=== PATIENT | female | born 1970 | race Caucasian/White ===

== ENCOUNTER 2017-01-17 20:30 | Emergency (ER) | payer OTHER ==
--- NOTE | 2017-01-17 21:39 | ERPHSYRPT ---
- History of Present Illness Time Seen by Provider: 01/17/17 21:19 Source: patient Patient Subjective Stated Complaint: pt had arthroscopic surgery on her right knee 01/[address] katz and since then she has been having pain in her right thigh,knee and calf -she can't sleep due the pain and she has numbness in her fingers and toes at times -she notes excessive swelling of both lower extremeties and the 2nd toe on the right foot is bruised no pain Triage Nursing Assessment: pt is awake and alert and able to answer questions - she is ambualtory with a knee brace and compressions stocking in place -she has pos pedal pulses bilat with the left stronger than the right both feet ar pink and warm with good sensation Physician History: The patient is a 46-year-old morbidly obese female with her status post right knee surgery one week ago complaining of bilateral lower leg swelling that has now begun to improve, severe right leg and knee pain which she has been treating with [place] 10 mg 2 tablets as needed, and tingling in her fingertips. She called her surgeon today and was told to come to the emergency room. She had the surgery done in [place]. The patient began walking on her rights leg the day after surgery but was instructed to no weight bearing. Her past medical history is significant for MRSA, hypertension, depression, glaucoma, psoriatic arthritis, rheumatoid arthritis. Method of Injury: other (knee surgery) Occurred: last week Quality: constant, aching Severity of Pain-Max: severe Severity of Pain-Current: severe Lower Extremities Pain: leg: right, knee: right Modifying Factors: Improves With: pain medication Associated Symptoms: other (swelling) Allergies/Adverse Reactions: bacitracin [From Neosporin ([id number])] Allergy (Verified 01/17/17 21:23) neomycin sulfate [From Neosporin ([id number])] Allergy (Verified 01/17/17 21: 23) Home Medications: Oxycodone HCl/Acetaminophen [Percocet 5-325 mg Tablet] 7.5 mg PO Q6HPRN PRN [History] Dorzolamide HCl/Timolol Maleat [Dorzolamide-Timolol Eye Drops] 10 ml OP DAILY [History] Lisinopril 10 mg [Zestril 10 MG] 10 mg PO DAILY 03/07/16 [History] Travorpost Ophth [Travatan 0.004% Opth Emily] 2.5 ml OP BID 03/07/16 [ History] Gabapentin [Neurontin] 1 - 2 tab PO TID 04/12/16 [History] Hx Tetanus, Diphtheria Vaccination/Date Given: No Hx Influenza Vaccination/Date Given: No Hx Pneumococcal Vaccination/Date Given: No - Review of Systems Constitutional: No Fever, No Chills Eyes: No Symptoms Ears, Nose, & Throat: No Symptoms Respiratory: No Cough, No Dyspnea Cardiac: No Chest Pain, No Edema, No Syncope Abdominal/Gastrointestinal: No Abdominal Pain, No Nausea, No Vomiting, No Diarrhea Genitourinary Symptoms: No Dysuria Musculoskeletal: Joint Pain, Joint Swelling Skin: No Rash Neurological: Sensory Changes Psychological: No Symptoms Endocrine: No Symptoms Hematologic/Lymphatic: No Symptoms Immunological/Allergic: No Symptoms All Other Systems: Reviewed and Negative - Past Medical History Pertinent Past Medical History: Yes ENT History: Glaucoma Cardiac History: Hypertension Other Medical History: scoriatic arthritis - Past Surgical History Past Surgical History: Yes Female Surgical History: Hysterectomy - Social History Smoking Status: Current every day smoker How long have you smoked: 20 Exposure to second hand smoke: No Drug Use: none Patient Lives Alone: No - Female History Hx Last Menstrual Period: hyst - Nursing Vital Signs Nursing Vital Signs: Initial Vital Signs Temperature 98.6 F 01/17/17 21:02 Pulse Rate 88 01/17/17 21:02 Respiratory Rate 16 01/17/17 21:02 Blood Pressure 138/93 01/17/17 21:02 O2 Sat by Pulse Oximetry 99 01/17/17 21:02 Pain Scale Pain Intensity 10 - Physical Exam General Appearance: alert Eyes, Ears, Nose, Throat Exam: moist mucous membranes Neck Exam: non-tender, supple Cardiovascular/Respiratory Exam: chest non-tender, normal breath sounds, regular rate/rhythm, no respiratory distress Gastrointestinal/Abdominal Exam: non-tender, guarding Back Exam: normal inspection, No vertebral tenderness Hips Exam: bilateral: non-tender, normal inspection Legs Exam: right leg: swelling, left leg: non-tender Knees Exam: right knee: soft tissue tenderness, swelling, other (healing surgical wounds.) Ankle Exam: right ankle: swelling Foot Exam: right foot: swelling Neuro/Tendon Exam: normal sensation, normal motor functions Mental Status Exam: alert, oriented x 3, cooperative Skin Exam: normal color, warm, dry SpO2 Interpretation: normal SpO2: 99 Oxygen Delivery: Room Air Ordered Tests: Active Orders 24 hr Category Date Time Status Clean Catch Urine Specimen STAT Care 01/17/17 21:53 Active IV Insertion STAT Care 01/17/17 21:49 Active BLOOD CULTURE Stat Lab 01/17/17 22:05 Received CBC W DIFF Stat Lab 01/17/17 21:52 Completed CMP Stat Lab 01/17/17 21:52 Completed CULTURE,URINE Stat Lab 01/17/17 21:45 Received D-DIMER QUANTITATION Stat Lab 01/17/17 21:52 Completed Lactic Acid Stat Lab 01/17/17 22:10 Completed Manual Differential NC Stat Lab 01/17/17 21:52 Completed NT PRO BNP Stat Lab 01/17/17 21:52 Completed UA W/ MICROSCOPIC Stat Lab 01/17/17 21:45 Completed Medication Summary Discontinued Medications Generic Name Dose Route Start Last Admin Trade Name Sesarq PRN Reason Stop Dose Admin Furosemide 40 mg 01/17/17 21:49 01/17/17 22:00 Lasix 40 Mg/4 Ml IV 01/17/17 21:50 40 mg STAT ONE Administration Furosemide Confirm 01/17/17 21:59 Lasix 40 Mg/4 Ml Administered 01/17/17 22:00 Dose 40 mg .ROUTE .STK-MED ONE Ketorolac Tromethamine 30 mg 01/17/17 21:50 01/17/17 22:01 Toradol 30 Mg Injection IV 01/17/17 21:51 30 mg STAT ONE Administration Ketorolac Tromethamine Confirm 01/17/17 21:59 Toradol 30 Mg Injection Administered 01/17/17 22:00 Dose 30 mg .ROUTE .STK-MED ONE Lab/Rad Data: Laboratory Result Diagrams 01/17/17 21:52 01/17/17 21:52 Laboratory Results 01/17/17 01/17/17 01/17/17 Range/Units 22:10 21:52 21:52 WBC (4.0-10.5) K/mm3 RBC (4.1-5.4) M/mm3 Hgb (12.0-16.0) gm/dl Hct (35-47) % MCV (78-100) fl MCH (26-32) pg MCHC (32-36) g/dl RDW (11.5-14.0) % Plt Count (150-450) K/mm3 MPV (6-9.5) fl D-Dimer 1429 H* (0-500) ng/mL Sodium 145 (136-145) mEq/L Potassium 4.0 (3.5-5.1) mEq/L Chloride 108 H (98-107) mEq/L Carbon Dioxide 28.8 (21-32) mEq/L Anion Gap 12.0 (5-15) MEQ/L BUN 9 (9-20) mg/dL Creatinine 0.62 (0.55-1.30) mg/dl Estimated GFR > 60 ML/MIN Glucose 118 H (70-110) MG/DL Lactic Acid 1.2 (0.4-2.0) Calcium 9.0 (8.5-10.1) mg/dL Total Bilirubin 0.20 (0.2-1.0) mg/dL AST 25 (15-37) U/L ALT 38 (12-78) U/L Alkaline Phosphatase 110 (46-116) U/L NT-Pro-B Natriuret Pep 164 H (0-125) pg/ml Serum Total Protein 7.4 (6.4-8.2) gm/dL Albumin 3.0 L (3.4-5.0) g/dL Ur Collection Type Urine Color (YELLOW) Urine Appearance (CLEAR) Urine pH (5-6) Ur Specific [place] (1.005-1.025) Urine Protein (Negative) Urine Ketones (NEGATIVE) Urine Blood (0-5) Syed/ul Urine Nitrite (NEGATIVE) Urine Bilirubin (NEGATIVE) Urine Urobilinogen (0-1) mg/dL Ur Leukocyte Esterase (NEGATIVE) Urine Microscopic RBC (0-2) /HPF Urine Microscopic WBC (0-5) /HPF Ur Epithelial Cells (FEW) /HPF Amorphous Crystals (NEGATIVE) /HPF Urine Bacteria (NEGATIVE) /HPF Urine Glucose (NEGATIVE) mg/dL Specimen Received 01/17/17 01/17/17 Range/Units 21:52 21:45 WBC 9.3 (4.0-10.5) K/mm3 RBC 4.85 (4.1-5.4) M/mm3 Hgb 13.3 (12.0-16.0) gm/dl Hct 41.7 (35-47) % MCV 86.0 (78-100) fl MCH 27.4 (26-32) pg MCHC 31.9 L (32-36) g/dl RDW 14.7 H (11.5-14.0) % Plt Count 379 (150-450) K/mm3 MPV 8.5 (6-9.5) fl D-Dimer (0-500) ng/mL Sodium (136-145) mEq/L Potassium (3.5-5.1) mEq/L Chloride (98-107) mEq/L Carbon Dioxide (21-32) mEq/L Anion Gap (5-15) MEQ/L BUN (9-20) mg/dL Creatinine (0.55-1.30) mg/dl Estimated GFR ML/MIN Glucose (70-110) MG/DL Lactic Acid (0.4-2.0) Calcium (8.5-10.1) mg/dL Total Bilirubin (0.2-1.0) mg/dL AST (15-37) U/L ALT (12-78) U/L Alkaline Phosphatase (46-116) U/L NT-Pro-B Natriuret Pep (0-125) pg/ml Serum Total Protein (6.4-8.2) gm/dL Albumin (3.4-5.0) g/dL Ur Collection Type CLEAN CATCH Urine Color YELLOW (YELLOW) Urine Appearance SLIGHTLY CLOUDY (CLEAR) Urine pH 7.0 (5-6) Ur Specific [place] 1.015 (1.005-1.025) Urine Protein NEGATIVE (Negative) Urine Ketones NEGATIVE (NEGATIVE) Urine Blood NEGATIVE (0-5) Syed/ul Urine Nitrite NEGATIVE (NEGATIVE) Urine Bilirubin NEGATIVE (NEGATIVE) Urine Urobilinogen NORMAL (0-1) mg/dL Ur Leukocyte Esterase 1+ (NEGATIVE) Urine Microscopic RBC 0-2 (0-2) /HPF Urine Microscopic WBC 5-10 (0-5) /HPF Ur Epithelial Cells FEW (FEW) /HPF Amorphous Crystals FEW (NEGATIVE) /HPF Urine Bacteria MODERATE (NEGATIVE) /HPF Urine Glucose NEGATIVE (NEGATIVE) mg/dL Specimen Received 01/17/17 2215 - Progress Progress: improved Counseled pt/family regarding: lab results, diagnosis, need for follow-up - Departure Time of Disposition: 23:55 Departure Disposition: Home Clinical Impression: Edema, Elevated d-dimer, UTI (urinary tract infection) Condition: Stable Critical Care Time: No Referrals: CORWIN PEÑA FNP [Primary Care Provider] - Additional Instructions: Tonight in the ER you were experiencing right leg pain, swelling of both legs, and a UTI. You were given Toradol 30 mg and Lasix 40 mg by IV and Lovenox 114 units subcutaneously. Your d-dimer was elevated which possibly indicates a DVT. The Lovenox is a prophylactic injection for the possible DVT. Tomorrow your scheduled for a venous ultrasound in your lower extremities to look for a blood clot. After your ultrasound tomorrow, follow-up with your private family doctor for the results and possible further therapy. For the UTI take cephalexin 500 mg 4 times a day for 7 days. Prescriptions: Cephalexin 500 mg PO QID #28 tablet
[2017-01-17] MEDS ORDERED: Lasix 40 MG/4 ML IV ONE (21:49)
[2017-01-17] MEDS ORDERED: TORAdol 30 mg Injection IV ONE (21:50)
[2017-01-17] MEDS ORDERED: TORAdol 30 mg Injection ONE (21:59)
[2017-01-17] MEDS ORDERED: Lasix 40 MG/4 ML ONE (21:59)
[2017-01-17 22:01] LABS: Mean Corpuscular Hemoglobin 27.4 pg (26-32); Mean Platelet Volume 8.5 fl (6-9.5); Platelet Count 379 K/mm3 (150-450); Red Blood Count 4.85 M/mm3 (4.1-5.4); Red Cell Distribution Width 14.7 % (11.5-14.0); White Blood Count 9.3 K/mm3 (4.0-10.5)
[2017-01-17 22:41] LABS: Collection Type CLEAN CATCH; Glucose NEGATIVE (NEGATIVE); Leukocyte Esterase 1+ (NEGATIVE)
[2017-01-17 22:42] LABS: Bilirubin NEGATIVE (NEGATIVE); Blood NEGATIVE Ery/ul (0-5); COMPLETE URINE MICROSCOPIC? YES
[2017-01-17 22:44] LABS: Bacteria MODERATE /HPF (NEGATIVE); Epithelial Cells FEW /HPF (FEW)
[2017-01-17 22:45] LABS: ADD URINE CULTURE? YES (NO)
[2017-01-17 22:47] LABS: ALKALINE PHOSPHATASE 110 U/L (46-116); BLOOD UREA NITROGEN 9 mg/dL (9-20); CHLORIDE 108 mEq/L (98-107); Carbon Dioxide 28.8 mEq/L (21-32); Glucose 118 MG/DL (70-110); SGOT/AST 25 U/L (15-37); SGPT/ALT 38 U/L (12-78); SODIUM 145 mEq/L (136-145); Total Protein 7.4 gm/dL (6.4-8.2)
[2017-01-17] MEDS ORDERED: ENOXAPARIN SODIUM SQ STA (23:48)
[2017-01-17] MEDS ORDERED: ENOXAPARIN SODIUM SQ ONE (23:55)
[2017-01-18 00:11] LABS: ATYPICAL LYMPHS 4 %; Eosinophil 9 % (0.00-3.0); Platelet Estimate NORMAL (NORMAL); Total Cells Counted 100
[2017-01-18 00:24] VITALS: BP 140/86; PULSE 80; O2SAT 98
== END 2017-01-18 00:24 | disposition home or self-care (01) ==
LOC: ED 20:30
DX: R60.9 Edema, unspecified (principal); R79.1 Abnormal coagulation profile; N39.0 Urinary tract infection, site not specified; Z98.890 Other specified postprocedural states; I10 Essential (primary) hypertension
CPT/HCPCS: 36000; 36415; 80053; 81000; 83605; 83880; 85025; 85379; 87040; 87086; 96372; 96374; 96375; 99284; J1650; J1885; J1940

== ENCOUNTER 2018-11-08 09:54 | Emergency (ER) | payer OTHER ==
[2018-11-08] MEDS ORDERED: NITRO-BID 2% UD PACKETS TOP ONE (10:15)
[2018-11-08] MEDS ORDERED: BABY ASPIRIN 81 MG CHEW PO ONE (10:15)
[2018-11-08] MEDS ORDERED: Sodium Chloride 0.9% 1000 ML 1,000 ML IV SCH (10:15)
[2018-11-08] MEDS ORDERED: Nitrostat 0.4 MG (ED) SL ONE ×2 (10:15→10:35)
--- NOTE | 2018-11-08 10:22 | ERPHSYRPT ---
- History of Present Illness Time Seen by Provider: 11/08/18 10:15 Historian: patient Exam Limitations: clinical condition Patient Subjective Stated Complaint: was scheduled for a total knee replacement on 11/05. states went in to cardiac arrest and had to shock her.. was released from the hospitwal the next day. states hurts all over. chest pain mid into back. does not go into arms or no N/V. unsure what happened. Triage Nursing Assessment: alert and awake in no distress. see above.. pain mid chest that goes into back. sl SOB with exertion.. able to ambulate with a limp due to knee. states they were unable to complete the surgical procedure. no previous hx of cardiac problems. Physician History: PATIENT WITH A HISTORY OF HYPERTENSION, CHRONIC PAIN SYNDROME, UNDERWENT ATTEMPTED RIGHT KNEE SURGERY 3 DAYS AGO BUT SURGERY CANCELLED DUE TO ALLERGIC REACTION UNDER ANESTHESIA. PATIENT COMPLAINS OF SUBSTERNAL CHEST TIGHTNESS PERSISTENT FOR 2 DAYS, RADIATES TO BACK. PAIN SCALE 4/10. DENIES ASSOCIATED DYSPNEA, DIAPHORESIS, PALPITATIONS, RADIATION OF PAIN TO NECK, JAW OR ARMS. Activities at Onset: none Quality: tightness Location: substernal Chest Pain Radiation: back Severity of Pain-Max: moderate Modifying Factors: Improves With: nothing Associated Symptoms: denies symptoms Nitro Today/Relief: no nitro taken today Aspirin Treatment Today: 81 mg x 4, provided by ED Allergies/Adverse Reactions: bacitracin [From Neosporin ([id number])] Allergy (Verified 11/08/18 10:46) neomycin sulfate [From Neosporin ([id number])] Allergy (Verified 11/08/18 10: 46) Home Medications: Oxycodone HCl/Acetaminophen [Percocet 5-325 mg Tablet] 7.5 mg PO Q6HPRN PRN [History] Dorzolamide HCl/Timolol Maleat [Dorzolamide-Timolol Eye Drops] 10 ml OP DAILY [History] Lisinopril 10 mg [Zestril 10 MG] 10 mg PO DAILY 03/07/16 [History] Travorpost Ophth [Travatan 0.004% Opth Emily] 2.5 ml OP BID 03/07/16 [ History] Gabapentin [Neurontin] 1 - 2 tab PO TID 04/12/16 [History] Hx Tetanus, Diphtheria Vaccination/Date Given: No Hx Influenza Vaccination/Date Given: No Hx Pneumococcal Vaccination/Date Given: No - Review of Systems Constitutional: No Fever, No Chills Eyes: No Symptoms Ears, Nose, & Throat: No Symptoms Respiratory: No Cough, No Dyspnea Cardiac: Chest Pain, No Edema, No Syncope Abdominal/Gastrointestinal: No Symptoms, No Abdominal Pain, No Nausea, No Vomiting, No Diarrhea Genitourinary Symptoms: No Symptoms, No Dysuria Musculoskeletal: No Symptoms, No Back Pain, No Neck Pain Skin: No Rash Neurological: No Dizziness, No Focal Weakness, No Sensory Changes Psychological: No Symptoms Endocrine: No Symptoms All Other Systems: Reviewed and Negative - Past Medical History Pertinent Past Medical History: Yes ENT History: Glaucoma Cardiac History: Hypertension Musculoskeletal History: Arthritis Other Medical History: scoriatic arthritis - Past Surgical History Past Surgical History: Yes Gastrointestinal: Hernia Repair Musculoskeletal: Orthopedic Surgery Female Surgical History: Hysterectomy Other Surgical History: 01/11 knee surgery right shoulder right ankle injury in past - Social History Smoking Status: Current every day smoker How long have you smoked: 20 Exposure to second hand smoke: No Drug Use: none Patient Lives Alone: No - Female History Hx Now: No - Nursing Vital Signs Nursing Vital Signs: Initial Vital Signs Pulse Rate 86 11/08/18 10:03 Respiratory Rate 18 11/08/18 10:03 Blood Pressure 151/75 11/08/18 10:03 O2 Sat by Pulse Oximetry 98 11/08/18 10:03 Pain Scale Pain Intensity 5 - Physical Exam General Appearance: no apparent distress, alert Eye Exam: PERRL/EOMI, eyes nml inspection Ears, Nose, Throat Exam: normal ENT inspection, moist mucous membranes Neck Exam: normal inspection, non-tender, supple, full range of motion Respiratory Exam: normal breath sounds, chest tenderness (THERE IS MINIMAL PARASTERNAL TENDERNESS T4-T7), lungs clear, No respiratory distress Cardiovascular Exam: regular rate/rhythm, normal heart sounds Gastrointestinal/Abdomen Exam: soft, normal bowel sounds, No tenderness, No mass Back Exam: normal inspection, point tenderness (TENDERNESS RIGHT PARASPINAL THORACIC SPINE T3 TO T7, NO CVA TENDERNESS), No CVA tenderness, No vertebral tenderness Extremity Exam: normal inspection, normal range of motion Neurologic Exam: alert, oriented x 3, cooperative, normal mood/affect, sensation nml, No motor deficits Skin Exam: normal color, warm, dry SpO2 Interpretation: normal SpO2: 98 O2 Delivery: Room Air - Course EKG Interpreted by Me: RATE, Sinus Rhythm, NORMAL AXIS (INTRAVENTRICULAR CONDUCTION DELAY, RATE 76) - Radiology Exams Chest X-ray Interpretation: Discussed w/ radiologist (BORDERLINE CARDIOMEGALY, NO EVIDENCE OF INFILTRATE OR CONGESTIVE HEART FAILURE) - CT Exams Chest CT Interpretation: Discussed w/radiologist (no evidence of large central pulmonary embolism, stable fatty liver and probable benign left adrenal gland mass. Upper abdomen again demonstrates a 2cm x 2.2 cm noncalcified left adrenal gland mass favored to be benign given stability over the years.) Ordered Tests: Active Orders 24 hr Category Date Time Status Chamber Worker STAT Care 11/08/18 10:15 Active EKG-ER Only STAT Care 11/08/18 10:15 Active IV Insertion STAT Care 11/08/18 10:15 Active Oxygen-ED Only Nasal Cannula 2 lpm Care 11/08/18 10:15 Active CHEST 1 VIEW (PORTABLE) Stat Exams 11/08/18 10:15 Completed CHEST WITH CONTRAST [CT] Stat Exams 11/08/18 11:26 Taken CBC W DIFF Stat Lab 11/08/18 10:27 Completed CMP Stat Lab 11/08/18 10:27 Completed D-DIMER QUANTITATION Stat Lab 11/08/18 10:27 Completed NT PRO BNP Stat Lab 11/08/18 10:27 Completed PROTIME WITH INR Stat Lab 11/08/18 10:27 Completed TROPONIN Q3H Lab 11/08/18 10:27 Completed TROPONIN Q3H Lab 11/08/18 13:15 Ordered TROPONIN Q3H Lab 11/08/18 16:15 Ordered TROPONIN Q3H Lab 11/08/18 19:15 Ordered TROPONIN Q3H Lab 11/08/18 22:15 Ordered Medication Summary Generic Name Dose Route Start Last Admin Trade Name Freq PRN Reason Stop Dose Admin Sodium Chloride 1,000 mls @ 100 mls/hr 11/08/18 10:15 11/08/18 10:36 Sodium Chloride 0.9% 1000 Ml IV 12/08/18 10:14 100 mls/hr .Q10H [place] Administration Discontinued Medications Generic Name Dose Route Start Last Admin Trade Name Freq PRN Reason Stop Dose Admin Aspirin 324 mg 11/08/18 10:15 11/08/18 10:37 Baby Aspirin 81 Mg Chew PO 11/08/18 10:16 324 mg STAT ONE Administration Aspirin Confirm 11/08/18 10:34 Baby Aspirin 81 Mg Chew Administered 11/08/18 10:35 Dose 324 mg .ROUTE .STK-MED ONE Nitroglycerin 0.4 mg 11/08/18 10:15 11/08/18 10:36 Nitrostat 0.4 Mg (Ed) SL 11/08/18 10:16 0.4 mg STAT ONE Administration Nitroglycerin 1 gm 11/08/18 10:15 11/08/18 10:37 Nitro-Bid 2% Ud Packets TOP 11/08/18 10:16 1 gm STAT ONE Administration Nitroglycerin Confirm 11/08/18 10:35 Nitro-Bid 2% Ud Packets Administered 11/08/18 10:36 Dose 1 gm .ROUTE .STK-MED ONE Nitroglycerin Confirm 11/08/18 10:35 Nitrostat 0.4 Mg (Ed) Administered 11/08/18 10:36 Dose 0.4 mg SL .STK-MED ONE Lab/Rad Data: Laboratory Result Diagrams 11/08/18 10:27 11/08/18 10:27 Laboratory Results 11/08/18 11/08/18 11/08/18 Range/Units 10:27 10:27 10:27 WBC 11.3 H (4.0-10.5) K/mm3 RBC 5.00 (4.1-5.4) M/mm3 Hgb 14.0 (12.0-16.0) gm/dl Hct 42.9 (35-47) % MCV 85.8 (78-100) fl MCH 28.0 (26-32) pg MCHC 32.6 (32-36) g/dl RDW 15.1 H (11.5-14.0) % Plt Count 335 (150-450) K/mm3 MPV 8.5 (6-9.5) fl Gran % 70.0 H (36.0-66.0) % Eos # (Auto) 0.31 (0-0.5) Absolute Lymphs (auto) 2.02 (1.0-4.6) Absolute Monos (auto) 1.03 (0.0-1.3) Lymphocytes % 17.9 L (24.0-44.0) % Monocytes % 9.1 (0.0-12.0) % Eosinophils % 2.7 (0.00-5.0) % Basophils % 0.3 (0.0-0.4) % Absolute Granulocytes 7.92 H (1.4-6.9) Basophils # 0.03 (0-0.4) PT 10.7 (9.95-12.35) SECONDS INR 0.95 (0.8-3.0) D-Dimer 569 H* (215-500) ng/mL Sodium 142 (137-145) mmol/L Potassium 4.0 (3.5-5.1) mmol/L Chloride 107 (98-107) mmol/L Carbon Dioxide 26 (22-30) mmol/L Anion Gap 13.2 (5-15) MEQ/L BUN 18 H (7-17) mg/dL Creatinine 0.51 L (0.52-1.04) mg/dL Estimated GFR > 60.0 ML/MIN Glucose 85 (74-106) mg/dL Calcium 9.0 (8.4-10.2) mg/dL Total Bilirubin 0.30 (0.2-1.3) mg/dL AST 22 (14-36) U/L ALT 27 (0-35) U/L Alkaline Phosphatase 101 (38-126) U/L Troponin I (0.000-0.034) ng/mL NT-Pro-B Natriuret Pep 85.3 (0-450) pg/mL Serum Total Protein 7.3 (6.3-8.2) g/dL Albumin 3.9 (3.5-5.0) g/dL 11/08/18 Range/Units 10:27 WBC (4.0-10.5) K/mm3 RBC (4.1-5.4) M/mm3 Hgb (12.0-16.0) gm/dl Hct (35-47) % MCV (78-100) fl MCH (26-32) pg MCHC (32-36) g/dl RDW (11.5-14.0) % Plt Count (150-450) K/mm3 MPV (6-9.5) fl Gran % (36.0-66.0) % Eos # (Auto) (0-0.5) Absolute Lymphs (auto) (1.0-4.6) Absolute Monos (auto) (0.0-1.3) Lymphocytes % (24.0-44.0) % Monocytes % (0.0-12.0) % Eosinophils % (0.00-5.0) % Basophils % (0.0-0.4) % Absolute Granulocytes (1.4-6.9) Basophils # (0-0.4) PT (9.95-12.35) SECONDS INR (0.8-3.0) D-Dimer (215-500) ng/mL Sodium (137-145) mmol/L Potassium (3.5-5.1) mmol/L Chloride (98-107) mmol/L Carbon Dioxide (22-30) mmol/L Anion Gap (5-15) MEQ/L BUN (7-17) mg/dL Creatinine (0.52-1.04) mg/dL Estimated GFR ML/MIN Glucose (74-106) mg/dL Calcium (8.4-10.2) mg/dL Total Bilirubin (0.2-1.3) mg/dL AST (14-36) U/L ALT (0-35) U/L Alkaline Phosphatase (38-126) U/L Troponin I < 0.012 (0.000-0.034) ng/mL NT-Pro-B Natriuret Pep (0-450) pg/mL Serum Total Protein (6.3-8.2) g/dL Albumin (3.5-5.0) g/dL - Progress Progress Note: 11/08/18 12:47, patient appears in no distress administered 4 baby aspirin orally, nitroglycerin 0.4mg sl, nitropaste 1 inch, Counseled pt/family regarding: diagnosis, rad results - Departure Departure Disposition: Home Clinical Impression: ATYPICAL CHEST/BACK PAIN Condition: Stable Critical Care Time: No Referrals: CASPER WOLFE MD [Primary Care Provider] - Additional Instructions: CONTINUE ALL CURRENT MEDICATIONS DIRECTED, HOLD YOUR DIABETIC MEDICATION FOR 48 HOURS. FOLLOWUP WITH YOUR PRIMARY CARE PROVIDER FOR FOLLOWUP.
[2018-11-08] MEDS ORDERED: BABY ASPIRIN 81 MG CHEW ONE (10:34)
[2018-11-08] MEDS ORDERED: NITRO-BID 2% UD PACKETS ONE (10:35)
[2018-11-08] MEDS ORDERED: Sodium Chloride 0.9% 1000 ML 1,000 ML ONE (10:35)
[2018-11-08 10:38] LABS: BASOPHIL % 0.3 % (0.0-0.4); Basophil (Absolute #) 0.03 (0-0.4); Eosinophil % 2.7 % (0.00-5.0); Eosinophil (Absolute #) 0.31 (0-0.5); Granulocyte Absolute (ANC) 7.92 (1.4-6.9); Hematocrit 42.9 % (35-47); Lymphocyte (Absolute #) 2.02 (1.0-4.6); Lymphocytes % 17.9 % (24.0-44.0); Mean Cell Volume 85.8 fl (78-100); Mean Corpuscular Hgb Concent. 32.6 g/dl (32-36); Mean Platelet Volume 8.5 fl (6-9.5); Monocyte (Absolute #) 1.03 (0.0-1.3); Monocytes % 9.1 % (0.0-12.0); Platelet Count 335 K/mm3 (150-450); Red Cell Distribution Width 15.1 % (11.5-14.0); White Blood Count 11.3 K/mm3 (4.0-10.5)
--- NOTE | 2018-11-08 11:00 | XRAY ---
Indication: Chest pain. Comparison: October 15, 2018. Portable chest is clear. Heart is borderline enlarged. Bony thorax intact again with distal right clavicle resection. Impression: Borderline cardiomegaly. Negative for acute pneumonic process or CHF.
[2018-11-08 11:09] LABS: INR 0.95 (0.8-3.0); PROTIME 10.7 SECONDS (9.95-12.35)
[2018-11-08 11:21] LABS: ALBUMIN 3.9 g/dL (3.5-5.0); ALKALINE PHOSPHATASE 101 U/L (38-126); ANION GAP 13.2 MEQ/L (5-15); BLOOD UREA NITROGEN 18 mg/dL (7-17); CHLORIDE 107 mmol/L (98-107); Carbon Dioxide 26 mmol/L (22-30); Creatinine 1 0.51 mg/dL (0.52-1.04); Glucose 85 mg/dL (74-106); NT PRO BNP 85.3 pg/mL (0-450); SGOT/AST 22 U/L (14-36); SGPT/ALT 27 U/L (0-35); SODIUM 142 mmol/L (137-145); Total Protein 7.3 g/dL (6.3-8.2)
--- NOTE | 2018-11-08 12:37 | XRAY ---
Indication: Chest pain. Elevated d-dimer. Multiple contiguous axial images obtained through the chest using 100 cc Isovue 370 contrast and PE protocol. Comparison: CT chest without contrast June 25, 2015. There is suboptimal opacification of the pulmonary arteries limiting evaluation for pulmonary embolus. No large central pulmonary embolus. Heart is now borderline enlarged. Aorta is normal in course and caliber. No pathologic mediastinal/hilar lymphadenopathy. Examination of lung parenchyma demonstrates minimal bilateral dependent atelectasis. Previous 7-8mm right middle lobe subpleural noncalcified nodule has enlarged today 12 mm. Previous posterior right upper lobe 2 mm nodule not seen either resolved or explained by difference in slice acquisition. No new pulmonary mass, infiltrate, or effusion. Bony thorax intact again with minimal degenerative changes throughout the spine. Upper abdomen again demonstrates a 2.0 x 2.2 cm noncalcified left adrenal gland mass favored to be benign given stability over the years. Also stable fatty liver. Impression: 1. Pulmonary embolus evaluation limited due to suboptimal contrast opacification. No large central pulmonary embolus. 2. Interval enlarging right middle lobe noncalcified nodule as detailed. PET/CT may yield further information. 3. New borderline cardiomegaly. No acute cardiopulmonary abnormalities. 4. Stable fatty liver and probable benign left adrenal gland mass. CT DI 28.13
[2018-11-08 12:55] VITALS: BP 136/78; PULSE 74; O2SAT 100
== END 2018-11-08 13:06 | disposition home or self-care (01) ==
LOC: ED 09:54
DX: R07.89 Other chest pain (principal); M54.9 Dorsalgia, unspecified; I10 Essential (primary) hypertension; M19.90 Unspecified osteoarthritis, unspecified site; Z79.899 Other long term (current) drug therapy
CPT/HCPCS: 36000; 36415; 71045; 71260; 80053; 83880; 84484; 85025; 85379; 85610; 93005; 93041; 96360; 96361; 99284; A9270-GY

== ENCOUNTER 2021-06-08 21:11 | Emergency (ER) | payer OTHER ==
[2021-06-08] MEDS ORDERED: XYLOCAINE 1% HCL 20 ML MDV ONE (21:21)
[2021-06-08] MEDS ORDERED: XYLOCAINE 1% HCL 20 ML MDV IJ ONE (21:23)
[2021-06-08] MEDS ORDERED: Adacel Vial IM ONE ×2 (21:33→21:36)
--- NOTE | 2021-06-08 21:34 | ERPHSYRPT ---
- History of Present Illness Time Seen by Provider: 06/08/21 21:30 Source: patient Physician History: Patient is a 50-year-old female presents to emergency department for evaluation of a laceration to the thenar eminence of her right hand. Patient states she was at home. She excellently bumped into a lamp went to catch the lab and the bulb broke in her hand. Patient states there was residual glass in her hand which she removed. Patient currently denies foreign body sensation in the involved hand. Injury occurred just prior to arrival. Pain described as an ache that is localized. Pain rated 2 out of 10 no radiation. Pain worse with palpation. Pain improved with rest. No other injuries reported. Patient otherwise healthy. Tetanus is not up-to-date. Timing/Duration: today Severity: mild Modifying Factors: Improves With: nothing Associated Symptoms: denies symptoms Allergies/Adverse Reactions: bacitracin [From Neosporin ([id number])] Allergy (Verified 06/08/21 21:18) neomycin sulfate [From Neosporin ([id number])] Allergy (Verified 06/08/21 21:18) Home Medications: Oxycodone HCl/Acetaminophen [Percocet 5-325 mg Tablet] 7.5 mg PO Q6HPRN PRN 12/08/15 [History] Dorzolamide HCl/Timolol Maleat [Dorzolamide-Timolol Eye Drops] 10 ml OP DAILY 03/07/16 [History] Lisinopril 10 mg [Zestril 10 MG] 10 mg PO DAILY 03/07/16 [History] Travorpost Ophth [Travatan 0.004% Opth Emily] 2.5 ml OP BID 03/07/16 [History] Gabapentin [Neurontin] 1 - 2 tab PO TID 04/12/16 [History] Hx Tetanus, Diphtheria Vaccination/Date Given: No Hx Influenza Vaccination/Date Given: No Hx Pneumococcal Vaccination/Date Given: No - Review of Systems Constitutional: No Symptoms, No Fever, No Chills Eyes: No Symptoms Ears, Nose, & Throat: No Symptoms Respiratory: No Symptoms, No Cough, No Dyspnea Cardiac: No Symptoms, No Chest Pain, No Edema, No Syncope Abdominal/Gastrointestinal: No Symptoms, No Abdominal Pain, No Nausea, No Vomiting, No Diarrhea Genitourinary Symptoms: No Symptoms, No Dysuria Musculoskeletal: No Symptoms, No Back Pain, No Neck Pain Skin: No Symptoms, No Rash Neurological: No Symptoms, No Dizziness, No Focal Weakness, No Sensory Changes Psychological: No Symptoms Endocrine: No Symptoms Hematologic/Lymphatic: No Symptoms Immunological/Allergic: No Symptoms All Other Systems: Reviewed and Negative - Past Medical History Pertinent Past Medical History: Yes ENT History: Glaucoma Cardiac History: Hypertension Musculoskeletal History: Arthritis Other Medical History: scoriatic arthritis - Past Surgical History Past Surgical History: Yes Gastrointestinal: Hernia Repair Musculoskeletal: Orthopedic Surgery Female Surgical History: Hysterectomy Other Surgical History: 01/11 knee surgery right shoulder right ankle injury in past - Social History Smoking Status: Current every day smoker How long have you smoked: 20 Exposure to second hand smoke: No Drug Use: none Patient Lives Alone: No - Nursing Vital Signs Nursing Vital Signs: Initial Vital Signs Temperature 97.5 F 06/08/21 21:19 Pulse Rate 100 H 06/08/21 21:19 Respiratory Rate 18 06/08/21 21:19 Blood Pressure 104/82 06/08/21 21:19 O2 Sat by Pulse Oximetry 96 06/08/21 21:19 Pain Scale Pain Intensity 2 - Physical Exam General Appearance: no apparent distress, alert Eye Exam: PERRL/EOMI, eyes nml inspection Ears, Nose, Throat Exam: normal ENT inspection, TMs normal, pharynx normal, moist mucous membranes Neck Exam: normal inspection, non-tender, supple, full range of motion Respiratory Exam: normal breath sounds, lungs clear, airway intact, No respiratory distress Cardiovascular Exam: regular rate/rhythm, normal heart sounds, normal peripheral pulses Gastrointestinal/Abdomen Exam: soft, normal bowel sounds, No tenderness, No mass Back Exam: normal inspection, normal range of motion, No CVA tenderness, No vertebral tenderness Extremity Exam: normal inspection, normal range of motion, pelvis stable, other (2.5 cm laceration to the right thenar eminence. Laceration is relatively superficial. Wound explored. No foreign body observed. Patient denies sensation of foreign body.) Neurologic Exam: alert, oriented x 3, cooperative, normal mood/affect, nml cerebellar function, nml station & gait, sensation nml, No motor deficits Skin Exam: normal color, warm, dry, No rash Lymphatic Exam: No adenopathy SpO2 Interpretation: normal SpO2: 96 O2 Delivery: Room Air Procedures - Laceration/Wound Repair Right Hand Time of Procedure: 21:41 Wound Location: Right (Right thenar eminence superficial laceration. No involvement of the recurrent branch of the median nerve.) Wound Length (cm): 2 Wound's Depth, Shape: superficial Wound Explored: clean Irrigated: Yes Hibiclens Prep: Yes Anesthesia: local, 2% Lidocaine Volume Anesthetic (ccs): 4 Wound Debrided: No debridement indicated. Wound Repaired With: sutures Suture Size/Type: 5-0, nylon Number of Sutures: 3 Layer Closure?: Yes Sterile Dressing Applied?: Yes Splint Applied?: No Progress: Patient neurovascularly intact post procedure. 06/08/21 21:43 - Course Nursing assessment & vital signs reviewed: Yes Ordered Tests: Medication Summary Discontinued Medications Generic Name Dose Route Start Last Admin Trade Name Freq PRN Reason Stop Dose Admin Diphtheria/Tetanus/Acell Pertussis 0.5 ml 06/08/21 21:33 06/08/21 21:36 Tdap --Diph,Pertuss(Acell),Tet Vac/Pf 0.5 Ml Vial IM 06/08/21 21:34 0.5 ml .ONCE ONE Administration Diphtheria/Tetanus/Acell Pertussis Confirm 06/08/21 21:36 Tdap --Diph,Pertuss(Acell),Tet Vac/Pf 0.5 Ml Vial Administered 06/08/21 21:37 Dose 0.5 ml IM .STK-MED ONE Lidocaine HCl Confirm 06/08/21 21:21 Lidocaine Hcl 1% 20 Ml Mdv 20 Ml Ml Administered 06/08/21 21:22 Dose 5 ml .ROUTE .STK-MED ONE Lidocaine HCl 5 ml 06/08/21 21:23 06/08/21 21:31 Lidocaine Hcl 1% 20 Ml Mdv 20 Ml Ml IJ 06/08/21 21:24 5 ml STAT ONE Administration - Progress Progress: improved Progress Note: Patient reassessed. She feels well. Pain resolved. Wound relatively superficial. Wound explored for foreign bodies. No foreign body observed. Patient denies sensation of foreign body. Tetanus updated. Patient will receive antibiotic prescription for Keflex prior to discharge. Patient agrees to follow-up with primary care doctor within 48 hours for evaluation. Sutures are to be removed in 7 days. Plan of care discussed with patient. Patient agreed to plan of care. All questions were answered. She voices no other complaints concerns at this time. Patient states is ready for discharge. Portions of this note were created with voice recognition technology. There may be grammatical, spelling, punctuation or sound alike errors 06/08/21 21:44 Counseled pt/family regarding: diagnosis, need for follow-up - Departure Departure Disposition: Home Clinical Impression: Laceration Condition: Stable Critical Care Time: No Referrals: CASPER WOLFE MD [Primary Care Provider] - Follow up/PCP as directed Additional Instructions: Discharge/Care Plan DAVID GREENFIELD was seen on 06/08/21 in the Emergency Room. The patient was counseled regarding Diagnosis,Lab results, Imaging studies, need for follow up and when to return to the Emergency Room. Prescriptions given: Discharge Note I have spoken with the patient and/or caregivers. I have explained the patient's condition, diagnosis and treatment plan based on the information available to me at this time. I have answered the patient's and/or caregiver's questions and addressed any concerns. The patient and/or caregivers have as good understanding of the patient's diagnosis, condition and treatment plan as can be expected at this point. The vital signs have been stable. The patient's condition is stable and appropriate for discharge from the emergency department. The patient will pursue further outpatient evaluation with the primary care physician or other designated or consulting physician as outlined in the discharge instructions. The patient and/or caregivers are agreeable to this plan of care and follow-up instructions have been explained in detail. The patient and/or caregivers have received these instruction. The patient/and or caregivers are aware that any significant change in condition or worsening of symptoms should prompt an immediate return to this or the closest emergency department or call 911. Prescriptions: Cephalexin Mh 500 mg [Keflex 500 mg] 500 mg PO TID #21 cap
[2021-06-08 21:39] VITALS: O2SAT 96
[2021-06-08 21:55] VITALS: BP 105/87; PULSE 84
== END 2021-06-08 21:55 | disposition home or self-care (01) ==
LOC: ED 21:11
DX: S61.411A Laceration without foreign body of right hand, initial encounter (principal); W25.XXXA Contact with sharp glass, initial encounter; Y92.009 Unspecified place in unspecified non-institutional (private) residence as the place of occurrence of the external cause; I10 Essential (primary) hypertension; Z79.891 Long term (current) use of opiate analgesic; Z79.899 Other long term (current) drug therapy; Z72.0 Tobacco use
CPT/HCPCS: 12001; 90471; 90715; 96372; 99284

== ENCOUNTER 2022-08-24 16:40 | Emergency (ER) | payer OTHER, MEDICARE ==
--- NOTE | 2022-08-24 16:57 | ERPHSYRPT ---
- History of Present Illness Time Seen by Provider: 08/24/22 16:56 Historian: patient Exam Limitations: no limitations Physician History: This is a obese 51-year-old white female patient of Dr. Wolfe who was working in her yard for several hours in the afternoon yesterday. In the evening she had some vomiting followed by several episodes of dry heaving. She complains of headache and some abdominal pain from vomiting. She feels weak. Patient has a history of hypertension, obesity and psoriatic arthritis. She smokes cigarettes daily. She has not had any diarrhea. She has not had any measurable fevers. She has not been exposed to individuals with flu like diagnoses or symptoms. Timing/Duration: yesterday, worse Quality: aching Abdominal Pain Onset Location: generalized abdomen Severity of Pain-Max: mild Severity of Pain-Current: mild Associated Symptoms: headache, nausea, weakness, No neck pain Previous symptoms: no prior history Allergies/Adverse Reactions: bacitracin [From Neosporin ([id number])] Allergy (Verified 08/24/22 16:49) neomycin sulfate [From Neosporin ([id number])] Allergy (Verified 08/24/22 16:49) Home Medications: Oxycodone HCl/Acetaminophen [Percocet 5-325 mg Tablet] 7.5 mg PO Q6HPRN PRN 12/08/15 [History] Dorzolamide HCl/Timolol Maleat [Dorzolamide-Timolol Eye Drops] 10 ml OP DAILY [History] Lisinopril 10 mg [Zestril 10 MG] 10 mg PO DAILY 03/07/16 [History] Travorpost Ophth [Travatan 0.004% Opth Emily] 2.5 ml OP BID 03/07/16 [History] Hx Tetanus, Diphtheria Vaccination/Date Given: No Hx Influenza Vaccination/Date Given: No Hx Pneumococcal Vaccination/Date Given: No Travel Risk - International Travel Have you traveled outside of the country in past 3 weeks: No - Coronavirus Screening Are you exhibiting any of the following symptoms?: Yes Symptoms: Vomiting/Diarrhea, Headaches/Body Aches/Fatigue Close contact with a COVID-19 positive Pt in past 14-21 Days: No - Vaccine Status Have you recieved a Covid-19 vaccination: No - Review of Systems Constitutional: Fever, Weakness Eyes: Photophobia Ears, Nose, & Throat: No Symptoms Respiratory: No Symptoms Abdominal/Gastrointestinal: Abdominal Pain, Nausea, Vomiting, Constipation, Appetite Changes (Patient has not eaten since yesterday morning), No Diarrhea Genitourinary Symptoms: No Symptoms Musculoskeletal: Arthralgias, Myalgias Skin: No Symptoms Neurological: Headache Psychological: No Symptoms Endocrine: No Symptoms Hematologic/Lymphatic: No Symptoms Immunological/Allergic: No Symptoms All Other Systems: Reviewed and Negative - Past Medical History Pertinent Past Medical History: Yes ENT History: Glaucoma Cardiac History: Hypertension Musculoskeletal History: Arthritis Other Medical History: scoriatic arthritis - Past Surgical History Past Surgical History: Yes Gastrointestinal: Hernia Repair Musculoskeletal: Orthopedic Surgery Female Surgical History: Hysterectomy Other Surgical History: 01/11 knee surgery right shoulder right ankle injury in past - Social History Smoking Status: Current every day smoker How long have you smoked: 20 Exposure to second hand smoke: No Drug Use: none Patient Lives Alone: No - Nursing Vital Signs Nursing Vital Signs: Initial Vital Signs Temperature 100.2 F 08/24/22 16:52 Pulse Rate 90 08/24/22 16:52 Respiratory Rate 18 08/24/22 16:52 Blood Pressure 138/95 08/24/22 16:52 O2 Sat by Pulse Oximetry 96 08/24/22 16:52 Pain Scale Pain Intensity 5 - Physical Exam General Appearance: mild distress, alert, obese Eye Exam: PERRL/EOMI, eyes nml inspection Ears, Nose, Throat Exam: normal ENT inspection, moist mucous membranes Neck Exam: normal inspection, non-tender, supple, full range of motion Respiratory Exam: normal breath sounds, lungs clear, airway intact, No chest tenderness, No respiratory distress Cardiovascular Exam: regular rate/rhythm, normal heart sounds, normal peripheral pulses Gastrointestinal/Abdomen Exam: soft, normal bowel sounds, tenderness (Mild diffuse on palpation) Pelvic Exam: not done Rectal Exam: not done Back Exam: normal inspection, normal range of motion, No CVA tenderness, No vertebral tenderness Extremity Exam: normal inspection, normal range of motion, pelvis stable Neurologic Exam: alert, oriented x 3, cooperative, pharmacy benefits coordinator II-XII nml as tested, normal mood/affect Skin Exam: normal color, warm, dry Lymphatic Exam: No adenopathy SpO2 Interpretation: normal O2 Delivery: Room Air - Course Nursing assessment & vital signs reviewed: Yes Ordered Tests: Active Orders 24 hr Category Date Time Status IV Insertion STAT Care 08/24/22 17:30 Active ABDOMEN AND PELVIS W/0 CONTRAS [CT] Stat Exams 08/24/22 17:30 Taken AMYLASE Stat Lab 08/24/22 17:30 Completed BLOOD CULTURE Stat Lab 08/24/22 17:45 Received CBC W DIFF Stat Lab 08/24/22 17:45 Completed CMP Stat Lab 08/24/22 17:30 Completed CULTURE,URINE Stat Lab 08/24/22 17:34 Received LIPASE Stat Lab 08/24/22 17:30 Completed TROPONIN Q4H Lab 08/24/22 17:30 Completed TROPONIN Q4H Lab 08/24/22 17:45 Received TROPONIN Q4H Lab 08/25/22 01:30 Ordered UA W/RFX UR CULTURE Stat Lab 08/24/22 17:34 Completed Medication Summary Discontinued Medications Generic Name Dose Route Start Last Admin Trade Name Freq PRN Reason Stop Dose Admin Hydromorphone HCl 1 mg 08/24/22 17:30 08/24/22 17:47 Hydromorphone 1 Mg/1ml Inj 1 Mg/Ml Syringe IV 08/24/22 17:31 1 mg STAT ONE Administration Hydromorphone HCl Confirm 08/24/22 17:37 Hydromorphone 1 Mg/1ml Inj 1 Mg/Ml Syringe Administered 08/24/22 17:38 Dose 1 mg .ROUTE .STK-MED ONE Sodium Chloride 1,000 mls @ 999 mls/hr 08/24/22 17:30 08/24/22 18:47 Sodium Chloride 0.9% 1000 Ml IV 08/24/22 18:30 Infused .Q1H1M STA Infusion Sodium Chloride Confirm 08/24/22 17:37 Sodium Chloride 0.9% 1000 Ml Administered 08/24/22 17:38 Dose 1,000 mls @ ud .ROUTE .STK-MED ONE Ondansetron HCl 4 mg 08/24/22 17:30 08/24/22 17:41 Ondansetron Hcl 4 Mg/2 Ml Vial IV 08/24/22 17:31 4 mg STAT ONE Administration Ondansetron HCl Confirm 08/24/22 17:36 Ondansetron Hcl 4 Mg/2 Ml Vial Administered 08/24/22 17:37 Dose 4 mg .ROUTE .STK-MED ONE Pantoprazole Sodium 40 mg 08/24/22 17:30 08/24/22 17:43 Pantoprazole 40 Mg Vial IV 08/24/22 17:31 40 mg STAT ONE Administration Pantoprazole Sodium Confirm 08/24/22 17:36 Pantoprazole 40 Mg Vial Administered 08/24/22 17:37 Dose 40 mg IV .STK-MED ONE Lab/Rad Data: Laboratory Result Diagrams 08/24/22 17:45 08/24/22 17:30 Laboratory Results 08/24/22 08/24/22 08/24/22 Range/Units 17:45 17:45 17:34 WBC 5.5 (4.0-10.5) x10^3/uL RBC 5.12 (4.1-5.4) x10^6/uL Hgb 14.0 (12.0-16.0) g/dL Hct 43.0 (35-47) % MCV 84.0 (78-100) fL MCH 27.3 (26-32) pg MCHC 32.6 (32-36) g/dL RDW 14.6 H (11.5-14.0) % Plt Count 279 (150-450) x10^3/uL MPV 8.9 (7.5-11.0) fL Gran % 70.0 H (36.0-66.0) % Immature Gran % (Auto) 0.9 H (0.00-0.4) % Nucleat RBC Rel Count 0.0 (0.00-0.1) % Eos # (Auto) 0.02 (0-0.5) x10^3/uL Immature Gran # (Auto) 0.05 H (0.00-0.03) x10^3u/L Absolute Lymphs (auto) 0.65 L (1.0-4.6) x10^3/uL Absolute Monos (auto) 0.91 (0.0-1.3) x10^3/uL Absolute Nucleated RBC 0.00 (0.00-0.01) x10^3u/L Lymphocytes % 11.8 L (24.0-44.0) % Monocytes % 16.5 H (0.0-12.0) % Eosinophils % 0.4 (0.00-5.0) % Basophils % 0.4 (0.0-0.4) % Absolute Granulocytes 3.86 (1.4-6.9) x10^3/uL Basophils # 0.02 (0-0.4) x10^3/uL Sodium (137-145) mmol/L Potassium (3.5-5.1) mmol/L Chloride (98-107) mmol/L Carbon Dioxide (22-30) mmol/L Anion Gap (5-15) MEQ/L BUN (7-17) mg/dL Creatinine (0.52-1.04) mg/dL Estimated GFR ML/MIN Glucose (74-106) mg/dL Calcium (8.4-10.2) mg/dL Total Bilirubin (0.2-1.3) mg/dL AST (14-36) U/L ALT (0-35) U/L Alkaline Phosphatase (38-126) U/L Troponin I (0.000-0.034) ng/mL Serum Total Protein (6.3-8.2) g/dL Albumin (3.5-5.0) g/dL Amylase (30-110) U/L Lipase (23-300) U/L Urine Color Yellow (Yellow) Urine Appearance Cloudy A (Clear) Urine pH 5.5 (4.6-8.0) Ur Specific Laurel 1.025 (1.005-1.030) Urine Protein 300 A (Negative) Urine Glucose (UA) Negative (Negative) mg/dL Urine Ketones Negative (Negative) Urine Blood Trace (Negative) Urine Nitrite Negative (Negative) Urine Bilirubin Negative (Negative) Urine Urobilinogen 0.2 (0.2) mg/dL Ur Leukocyte Esterase Negative (Negative) U Hyaline Cast (Auto) NONE SEEN (0-2) /LPF Urine Microscopic RBC 3-5 (0-5) /HPF Urine Microscopic WBC 3-5 (0-5) /HPF Ur Epithelial Cells Many A (None Seen) /HPF Urine Bacteria Moderate A (None Seen) /HPF Urine Culture Reflexed YES (NO) Influenza Type A Ag NEGATIVE (NEGATIVE) Influenza Type B Ag NEGATIVE (NEGATIVE) RSV (PCR) NEGATIVE (NEGATIVE) SARS-CoV-2 (PCR) POSITIVE A (NEGATIVE) 08/24/22 Range/Units 17:30 WBC (4.0-10.5) x10^3/uL RBC (4.1-5.4) x10^6/uL Hgb (12.0-16.0) g/dL Hct (35-47) % MCV (78-100) fL MCH (26-32) pg MCHC (32-36) g/dL RDW (11.5-14.0) % Plt Count (150-450) x10^3/uL MPV (7.5-11.0) fL Gran % (36.0-66.0) % Immature Gran % (Auto) (0.00-0.4) % Nucleat RBC Rel Count (0.00-0.1) % Eos # (Auto) (0-0.5) x10^3/uL Immature Gran # (Auto) (0.00-0.03) x10^3u/L Absolute Lymphs (auto) (1.0-4.6) x10^3/uL Absolute Monos (auto) (0.0-1.3) x10^3/uL Absolute Nucleated RBC (0.00-0.01) x10^3u/L Lymphocytes % (24.0-44.0) % Monocytes % (0.0-12.0) % Eosinophils % (0.00-5.0) % Basophils % (0.0-0.4) % Absolute Granulocytes (1.4-6.9) x10^3/uL Basophils # (0-0.4) x10^3/uL Sodium 136 L (137-145) mmol/L Potassium 3.8 (3.5-5.1) mmol/L Chloride 101 (98-107) mmol/L Carbon Dioxide 29 (22-30) mmol/L Anion Gap 10.7 (5-15) MEQ/L BUN 13 (7-17) mg/dL Creatinine 0.63 (0.52-1.04) mg/dL Estimated GFR > 60.0 ML/MIN Glucose 122 H (74-106) mg/dL Calcium 8.4 (8.4-10.2) mg/dL Total Bilirubin 0.30 (0.2-1.3) mg/dL AST 25 (14-36) U/L ALT 20 (0-35) U/L Alkaline Phosphatase 107 (38-126) U/L Troponin I < 0.012 (0.000-0.034) ng/mL Serum Total Protein 7.7 (6.3-8.2) g/dL Albumin 4.0 (3.5-5.0) g/dL Amylase 61 (30-110) U/L Lipase 67 (23-300) U/L Urine Color (Yellow) Urine Appearance (Clear) Urine pH (4.6-8.0) Ur Specific Laurel (1.005-1.030) Urine Protein (Negative) Urine Glucose (UA) (Negative) mg/dL Urine Ketones (Negative) Urine Blood (Negative) Urine Nitrite (Negative) Urine Bilirubin (Negative) Urine Urobilinogen (0.2) mg/dL Ur Leukocyte Esterase (Negative) U Hyaline Cast (Auto) (0-2) /LPF Urine Microscopic RBC (0-5) /HPF Urine Microscopic WBC (0-5) /HPF Ur Epithelial Cells (None Seen) /HPF Urine Bacteria (None Seen) /HPF Urine Culture Reflexed (NO) Influenza Type A Ag (NEGATIVE) Influenza Type B Ag (NEGATIVE) RSV (PCR) (NEGATIVE) SARS-CoV-2 (PCR) (NEGATIVE) - Progress Progress: improved, re-examined Progress Note: 08/24/22 19:12 CAT scan of the abdomen pelvis without contrast was read by the radiologist and I reviewed the impression. CAT scan of the abdomen pelvis shows no intra- abdominal or intrapelvic acute abnormality. They were able to see a right lung middle lobe nodule that was present in prior studies but it has increased in size. There may be a concern for malignancy because of the change in size and the characteristics of this nodule. I discussed this finding with the patient and the patient's spouse. This patient has medical issues of moderate complexity. The level of complexity and the work-up performed is based on the review of the patient's past medical history, review of the patient's medication list, review of the patient's drug allergy list, history of present illness and physical findings on physical exam. The work-up performed includes COVID swabs, influenza a and B swabs, RSV swabs, mono test, CBC, CMP, amylase, lipase, urinalysis, CAT scan of the abdomen pelvis without contrast. I reviewed the results of the above studies. The patient tested positive for COVID-19 infection. This could certainly cause the patient's symptoms. We did find a right middle lobe nodule that had abnormal characteristics and has increased in size when compared to a prior study. I did discuss this finding on the nodule in the right lung with the patient and the patient's spouse. They are to follow-up with her primary care provider for further evaluation management. The plan is to have this patient be on a clear liquid diet. I will send a prescription of Zofran to her pharmacy via computer. Patient is to call her primary care provider tomorrow to determine the need for any outpatient COVID medication either by mouth or by infusion. Counseled pt/family regarding: lab results, diagnosis, need for follow-up, rad results Medical Desision Making - Independent Historian Additional History obtained from: Spouse - Discussion of managment Reviewed:: Test results Agreed on:: Treatment plan, need for follow-up - Diagnostic Testing Radiological Interpretation: Reviewed by me, Teleradiologist Report - Risk of complications The pt has a mod risk of morbidity or mortality based on: Need for prescription drug management - Departure Departure Disposition: Home Clinical Impression: COVID-19 virus infection, Right middle lobe pulmonary nodule Condition: Stable Critical Care Time: No Referrals: CASPER WOLFE MD [Primary Care Provider] - Follow up/PCP as directed Additional Instructions: Take your medication as prescribed. Call your primary care doctor tomorrow to discuss any further outpatient treatment of COVID-19 infection. In addition talk to your primary care doctor tomorrow about further evaluation of the right middle lobe pulmonary nodule. Prescriptions: Ondansetron ODT 4 MG [Zofran Odt 4 mg] 4 mg PO Q6H PRN PRN #10 tablet PRN Reason: Vomiting
[2022-08-24] MEDS ORDERED: Hydromorphone 1 mg/ml Injection IV ONE (17:30)
[2022-08-24] MEDS ORDERED: Zofran 4 MG/2 ML VIAL IV ONE (17:30)
[2022-08-24] MEDS ORDERED: PROTONIX 40 MG IV IV ONE ×2 (17:30→17:36)
[2022-08-24] MEDS ORDERED: Sodium Chloride 0.9% 1000 ML 1,000 ML IV STA (17:30)
[2022-08-24] MEDS ORDERED: Zofran 4 MG/2 ML VIAL ONE (17:36)
[2022-08-24] MEDS ORDERED: Hydromorphone 1 mg/ml Injection ONE (17:37)
[2022-08-24] MEDS ORDERED: Sodium Chloride 0.9% 1000 ML 1,000 ML ONE (17:37)
[2022-08-24 18:25] LABS: ALKALINE PHOSPHATASE 107 U/L (38-126); AMYLASE 61 U/L (30-110); ANION GAP 10.7 MEQ/L (5-15); BLOOD UREA NITROGEN 13 mg/dL (7-17); CHLORIDE 101 mmol/L (98-107); Calcium 8.4 mg/dL (8.4-10.2); Carbon Dioxide 29 mmol/L (22-30); Creatinine 1 0.63 mg/dL (0.52-1.04); EST GLOMERULAR FILTRATION RATE > 60.0 ML/MIN; Glucose 122 mg/dL (74-106); LIPASE 67 U/L (23-300); Potassium 3.8 mmol/L (3.5-5.1); SGOT/AST 25 U/L (14-36); SGPT/ALT 20 U/L (0-35); SODIUM 136 mmol/L (137-145); TROPONIN < 0.012 ng/mL (0.000-0.034); Total Protein 7.7 g/dL (6.3-8.2)
[2022-08-24 18:29] LABS: Absolute Neutrophil Ct (ANC) 3.86 x10^3/uL (1.4-6.9); BASOPHIL % 0.4 % (0.0-0.4); Basophil (Absolute #) 0.02 x10^3/uL (0-0.4); Eosinophil % 0.4 % (0.00-5.0); Eosinophil (Absolute #) 0.02 x10^3/uL (0-0.5); IMMATURE GRAN # 0.05 x10^3u/L (0.00-0.03); IMMATURE GRAN % 0.9 % (0.00-0.4); Lymphocyte (Absolute #) 0.65 x10^3/uL (1.0-4.6); Lymphocytes % 11.8 % (24.0-44.0); Mean Corpuscular Hemoglobin 27.3 pg (26-32); Mean Corpuscular Hgb Concent. 32.6 g/dL (32-36); Mean Platelet Volume 8.9 fL (7.5-11.0); Monocyte (Absolute #) 0.91 x10^3/uL (0.0-1.3); Monocytes % 16.5 % (0.0-12.0); Platelet Count 279 x10^3/uL (150-450); Red Blood Count 5.12 x10^6/uL (4.1-5.4); Red Cell Distribution Width 14.6 % (11.5-14.0); White Blood Count 5.5 x10^3/uL (4.0-10.5)
[2022-08-24 18:39] LABS: INFLUENZA A NEGATIVE (NEGATIVE); INFLUENZA B NEGATIVE (NEGATIVE); RESPIRATORY SYNCTIAL VIRUS NEGATIVE (NEGATIVE)
[2022-08-24 18:42] LABS: SARS-CoV-2 Xpert Express POSITIVE (NEGATIVE)
[2022-08-24 19:20] VITALS: BP 131/75; PULSE 97; O2SAT 91
[2022-08-24 19:21] LABS: ADD URINE CULTURE? YES (NO); Appearance Cloudy (Clear); Bacteria Moderate /HPF (None Seen); Bilirubin Negative (Negative); Blood Trace (Negative); Epithelial Cells Many /HPF (None Seen); Glucose, Urine Negative (Negative); Hyaline Casts NONE SEEN /LPF (0-2); Ketones Negative (Negative); Leukocyte Esterase Negative (Negative); Nitrite Negative (Negative); Ph 5.5 (4.6-8.0); Protein,Urine Dip 300 (Negative); Specific Gravity 1.025 (1.005-1.030); Urobilinogen 0.2 mg/dL (0.2)
--- NOTE | 2022-08-25 08:39 | XRAY ---
Indication: Abdomen pain, nausea, vomiting, and weakness. Multiple contiguous axial images obtained through the abdomen and pelvis without contrast. Comparison: December 07, 2015 Lung bases demonstrates new incompletely visualized irregular right middle lobe noncalcified nodule measuring at least 1.4 x 2.0 cm. No infiltrate or effusion. Heart not enlarged. Noncontrasted stomach and bowel loops appear nonobstructed with normal appendix. Enlarging 4 cm transverse duodenal diverticulum, previously 2.8 cm. Minimal scattered colonic diverticulosis without diverticulitis. Again 23.5 cm fatty hepatomegaly, left adrenal adenoma, and hysterectomy. No free fluid/air. Remaining liver, gallbladder, pancreas, spleen, adrenal glands, kidneys, ureters, and bladder are unremarkable for noncontrast exam. Again mild scattered aortoiliac calcifications without AAA. Osseous structures intact with progressive worsening mild/moderate degenerative changes throughout the thoracolumbar spine and mild degenerative changes both hips. Stable mild levorotoscoliosis centered at L2-L3. Impression: 1. New incompletely visualized 1.4 x 2.0 cm irregular right middle lobe noncalcified nodule, previously measuring 1.[address] chest November 08, 2018. Finding worrisome for malignancy. 2. Enlarging duodenal diverticulum. 3. Again chronic findings including fatty hepatomegaly, left adrenal adenoma, arteriosclerotic disease, and chronic bony findings.
== END 2022-08-24 19:57 | disposition home or self-care (01) ==
LOC: ED 16:40
DX: U07.1 COVID-19 (principal); R91.1 Solitary pulmonary nodule; R11.10 Vomiting, unspecified; R51.9 Headache, unspecified; I10 Essential (primary) hypertension; Z79.899 Other long term (current) drug therapy; Z28.310 Unvaccinated for COVID-19; Z72.0 Tobacco use
CPT/HCPCS: 0241U; 36000; 36415; 74176; 80053; 81001; 82150; 83690; 84484; 85025; 87040; 87086; 96374; 96375; 99284; J1170; J2405

== ENCOUNTER 2023-05-04 11:24 | Emergency (ER) | payer MEDICARE, OTHER ==
--- NOTE | 2023-05-04 11:33 | ERPHSYRPT ---
- History of Present Illness Time Seen by Provider: 05/04/23 11:32 Source: patient Exam Limitations: no limitations Physician History: This is an obese 52-year-old white female patient who has a history of hypertension and varicose veins. She presents with punctate venous bleeding from the skin overlying the right lateral malleolus. Patient was shaving her leg and then this occurred. Patient states she chronically has an eschar overlying the spot. When the eschar has been accidentally removed in the past, she has bleeding that is difficult to stop. Timing/Duration: today Quality: painful Severity: mild Location: feet (Right lateral malleolus) Associated Symptoms: denies symptoms Allergies/Adverse Reactions: bacitracin [From Neosporin ([id number])] Allergy (Verified 05/04/23 11:34) neomycin sulfate [From Neosporin ([id number])] Allergy (Verified 05/04/23 11:34) Home Medications: Dorzolamide HCl/Timolol Maleat [Dorzolamide-Timolol Eye Drops] 10 ml OP DAILY 03/07/16 [History] Lisinopril 10 mg [Zestril 10 MG] 10 mg PO DAILY 03/07/16 [History] Travorpost Ophth [Travatan 0.004% Opth Emily] 2.5 ml OP BID 03/07/16 [History] Hx Tetanus, Diphtheria Vaccination/Date Given: No Hx Influenza Vaccination/Date Given: No Hx Pneumococcal Vaccination/Date Given: No Travel Risk - International Travel Have you traveled outside of the country in past 3 weeks: No - Coronavirus Screening Are you exhibiting any of the following symptoms?: No Close contact with a COVID-19 positive Pt in past 14-21 Days: No - Vaccine Status Have you recieved a Covid-19 vaccination: No - Review of Systems Constitutional: No Symptoms Eyes: No Symptoms Ears, Nose, & Throat: No Symptoms Respiratory: No Symptoms Cardiac: No Symptoms Abdominal/Gastrointestinal: No Symptoms Genitourinary Symptoms: No Symptoms Musculoskeletal: No Symptoms Skin: Other (Skin overlying right malleolus with punctate venous bleed) Neurological: No Symptoms Psychological: No Symptoms Endocrine: No Symptoms Hematologic/Lymphatic: No Symptoms Immunological/Allergic: No Symptoms All Other Systems: Reviewed and Negative - Past Medical History Pertinent Past Medical History: Yes ENT History: Glaucoma Cardiac History: Hypertension Musculoskeletal History: Arthritis GI Medical History: Hernia Psycho-Social History: Depression Other Medical History: scoriatic arthritis - Past Surgical History Past Surgical History: Yes Gastrointestinal: Hernia Repair Musculoskeletal: Orthopedic Surgery Female Surgical History: Hysterectomy Other Surgical History: 01/11 knee surgery right shoulder right ankle injury in past - Social History Smoking Status: Current every day smoker How long have you smoked: 20 Exposure to second hand smoke: No Drug Use: none Patient Lives Alone: No - Nursing Vital Signs Nursing Vital Signs: Initial Vital Signs Temperature 97.3 F 05/04/23 11:35 Pulse Rate 102 H 05/04/23 11:35 Respiratory Rate 18 05/04/23 11:35 Blood Pressure 155/92 05/04/23 11:35 O2 Sat by Pulse Oximetry 97 05/04/23 11:35 Pain Scale Pain Intensity 3 - Physical Exam General Appearance: no apparent distress, alert, anxiety, obese Eye Exam: PERRL/EOMI, eyes nml inspection Ears, Nose, Throat Exam: normal ENT inspection, moist mucous membranes Neck Exam: normal inspection, non-tender, supple, full range of motion Respiratory Exam: airway intact, No chest tenderness, No respiratory distress Pelvic Exam: not done Rectal Exam: not done Back Exam: normal inspection, normal range of motion, No CVA tenderness, No vertebral tenderness Extremity Exam: normal range of motion, pelvis stable Neurologic Exam: alert, oriented x 3, 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, 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, normal mood/affect, nml cerebellar function, nml station & gait, sensation nml Skin Exam: other (Punctate venous bleeding from skin overlying the right malleolus.) Lymphatic Exam: No adenopathy SpO2 Interpretation: normal O2 Delivery: Room Air - Course Nursing assessment & vital signs reviewed: Yes Ordered Tests: Active Orders 24 hr Category Date Time Status Herberth Bandage Application -[facility] STAT Care 05/04/23 11:49 Active Wound Care STAT Care 05/04/23 11:48 Active - Progress Progress: improved Progress Note: 05/04/23 12:00 Procedure note: This patient's medical issue is 1 of low complexity. The skin overlying the right malleolus has a venous punctate opening causing brisk venous bleeding that is difficult to stop because of pressure. Patient has a history of varicose veins. I did not use silver nitrate or other type of cautery because the hole would be made bigger. I also did not choose to stop the bleeding using sutures. We would then have 3 skin sites that would be bleeding. Therefore what we performed was placement of Surgicel overlying the skin has the punctate lesion followed by nonstick bandage, 4 x 4 gauze, Kerlix and Herberth wrap. In my experience, the best way to stop the bleeding and these type of bleeding lesions, is to provide long-term pressure. In addition, patient was told to keep the right lower extremity elevated above level heart. She may also apply ice pack to the area but make sure she keeps the Herberth wrap dry. Counseled pt/family regarding: diagnosis Medical Desision Making - Independent Historian Additional History obtained from: Family - Diagnostic Testing Diagnostic test were ordered, analyzed, and reviewed by me: No - Risk of complications Low Risk: Low risk of morbidity from additional dx testing or treatment - Departure Departure Disposition: Home Clinical Impression: Bleeding from varicose veins of lower extremity Condition: Stable Critical Care Time: No Referrals: CASPER WOLFE MD [Primary Care Provider] - Follow up/PCP as directed Additional Instructions: Keep the Herberth bandage pressure dressing in place for 48 hours. After 48 hours may remove the bandage/dressing. Do not rub the site. Keep your right lower extremity elevated above the level of your heart. You may also apply ice pack to the area 3 times a day for the next 48 hours. Take care not to place the ice pack directly on the Herberth wrap but to cover this with the towel so as to not get the Herberth wrap wet.
[2023-05-04 11:43] VITALS: BP 155/92; PULSE 102; RESP 18; TEMP 97.3; O2SAT 97
== END 2023-05-04 12:20 | disposition home or self-care (01) ==
LOC: ED 11:24
DX: I83.891 Varicose veins of right lower extremity with other complications (principal); I10 Essential (primary) hypertension; Z79.899 Other long term (current) drug therapy; Z28.310 Unvaccinated for COVID-19; Z72.0 Tobacco use
CPT/HCPCS: 99282

== ENCOUNTER 2024-02-05 15:53 | Emergency (ER) | payer BC, MEDICARE ==
--- NOTE | 2024-02-05 16:29 | ERPHSYRPT ---
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 Patient was referred to our ED by her primary care provider. Patient is a DNR. Patient requesting relief of shortness of breath. No active chest pain. No trauma no fever symptoms are mild to moderate in intensity. Shortness of breath worse with exertion and when she lays flat. Symptoms improved while she is sitting up with oxygen. Patient reports she was diagnosed with this tumor in October. They attempted to perform a biopsy however patient reportedly coded 3 times during the procedure. Instead patient was treated with radiation. Patient reports that she receives her care regarding this diagnosis at [facility]. Portions of this note were created with voice recognition technology. There may be grammatical, spelling, punctuation or sound alike errors Timing/Duration: today Severity: moderate Modifying Factors: Improves With: nothing Associated Symptoms: denies symptoms Allergies/Adverse Reactions: bacitracin [From Neosporin ([id number])] Allergy (Verified 02/05/24 16:39) neomycin sulfate [From Neosporin ([id number])] Allergy (Verified 02/05/24 16:39) Hx Tetanus, Diphtheria Vaccination/Date Given: No Hx Influenza Vaccination/Date Given: No Hx Pneumococcal Vaccination/Date Given: No - Review of Systems Constitutional: No Symptoms, No Fever, No Chills Eyes: No Symptoms Ears, Nose, & Throat: No Symptoms Respiratory: No Symptoms, No Cough, No Dyspnea Cardiac: No Symptoms, No Chest Pain, No Edema, No Syncope Abdominal/Gastrointestinal: No Symptoms, No Abdominal Pain, No Nausea, No V omiting, No Diarrhea Genitourinary Symptoms: No Symptoms, No Dysuria Musculoskeletal: No Symptoms, No Back Pain, No Neck Pain Skin: No Symptoms, No Rash Neurological: No Symptoms, No Dizziness, No Focal Weakness, No Sensory Changes Psychological: No Symptoms Endocrine: No Symptoms Hematologic/Lymphatic: No Symptoms Immunological/Allergic: No Symptoms All Other Systems: Reviewed and Negative - Past Medical History Pertinent Past Medical History: Yes ENT History: Glaucoma Cardiac History: Hypertension Musculoskeletal History: Arthritis GI Medical History: Hernia Psycho-Social History: Depression Other Medical History: scoriatic arthritis - Past Surgical History Past Surgical History: Yes Gastrointestinal: Hernia Repair Musculoskeletal: Orthopedic Surgery Female Surgical History: Hysterectomy Other Surgical History: 01/11 knee surgery right shoulder right ankle injury in past - Social History Smoking Status: Current every day smoker How long have you smoked: 20 Exposure to second hand smoke: No Drug Use: none Patient Lives Alone: No - Nursing Vital Signs Nursing Vital Signs: Initial Vital Signs Temperature 96.8 F 02/05/24 16:41 Pulse Rate 131 H 02/05/24 16:41 Respiratory Rate 43 H 02/05/24 16:41 Blood Pressure 96/69 02/05/24 16:41 O2 Sat by Pulse Oximetry 93 L 02/05/24 16:41 Pain Scale Pain Intensity 10 - Physical Exam General Appearance: no apparent distress, alert Eye Exam: PERRL/EOMI, eyes nml inspection Ears, Nose, Throat Exam: normal ENT inspection, TMs normal, pharynx normal, moist mucous membranes Neck Exam: normal inspection, non-tender, supple, full range of motion Respiratory Exam: normal breath sounds, lungs clear, diminished breath sounds, No respiratory distress Cardiovascular Exam: regular rate/rhythm, normal heart sounds, normal peripheral pulses Gastrointestinal/Abdomen Exam: soft, normal bowel sounds, No tenderness, No mass Back Exam: normal inspection, normal range of motion, No CVA tenderness, No vertebral tenderness Extremity Exam: normal inspection, normal range of motion, pelvis stable Neurologic Exam: alert, oriented x 3, cooperative, normal mood/affect, nml cerebellar function, nml station & gait, sensation nml, No motor deficits Skin Exam: normal color, warm, dry, No rash Lymphatic Exam: No adenopathy SpO2 Interpretation: normal O2 Delivery: Room Air - Course Nursing assessment & vital signs reviewed: Yes - Radiology Exams Chest X-ray Interpretation: Interpreted by me (Right hemithorax opacification approximately 60%, bilateral pleural effusion) Ordered Tests: Active Orders 24 hr Category Date Time Status Power Washer STAT Care 02/05/24 16:26 Active EKG-ER Only STAT Care 02/05/24 16:25 Active IV Insertion STAT Care 02/05/24 16:25 Active IV Insertion-2nd Peripheral STAT Care 02/05/24 21:33 Active Pulse Oximetry (ED) STAT Care 02/05/24 16:25 Active CHEST 1 VIEW (PORTABLE) Stat Exams 02/05/24 16:25 Taken BLOOD CULTURE Stat Lab 02/05/24 21:30 Received BNPII [NT PRO BNPII] Stat Lab 02/05/24 16:30 Completed CBC W DIFF Stat Lab 02/05/24 16:30 Completed CMP Stat Lab 02/05/24 16:30 Completed CULTURE,URINE Stat Lab 02/05/24 17:05 Received Lactic Acid Stat Lab 02/05/24 21:25 Completed NT PRO BNPII Stat Lab 02/05/24 16:30 Completed PROCALCITONIN Stat Lab 02/05/24 20:05 Completed TROPONIN Q4H Lab 02/05/24 20:03 Completed TROPONIN Q4H Lab 02/06/24 00:30 Ordered TROPONIN Stat Lab 02/05/24 16:30 Completed UA W/RFX UR CULTURE Stat Lab 02/05/24 17:05 Completed Medication Summary Discontinued Medications Generic Name Dose Route Start Last Admin Trade Name Freq PRN Reason Stop Dose Admin Hydromorphone HCl Confirm 02/05/24 21:22 Hydromorphone 1 Mg/1ml Inj Administered 02/05/24 21:23 Dose 1 mg .ROUTE .STK-MED ONE Hydromorphone HCl 0.5 mg 02/05/24 21:28 02/05/24 21:29 Hydromorphone 1 Mg/1ml Inj IV 02/05/24 21:29 0.5 mg STAT ONE Administration Piperacillin Sod/Tazobactam 100 mls @ 200 mls/hr 02/05/24 21:16 02/05/24 21:29 Sod 3.375 gm/ Sodium Chloride IV 02/05/24 21:45 200 mls/hr STAT ONE Administration Sodium Chloride Confirm 02/05/24 21:26 Sodium Chloride 100ml Mini-Bag Plus Administered 02/05/24 21:27 Dose 100 mls @ ud IV .STK-MED ONE Morphine Sulfate 2 mg 02/05/24 17:33 02/05/24 17:40 Morphine Sulfate 2 Mg/Ml Inj IV 02/05/24 17:34 2 mg STAT ONE Administration Morphine Sulfate Confirm 02/05/24 17:39 Morphine Sulfate 2 Mg/Ml Inj Administered 02/05/24 17:40 Dose 2 mg .ROUTE .STK-MED ONE Ondansetron HCl 4 mg 02/05/24 17:40 02/05/24 17:40 Ondansetron Hcl 4 Mg/2 Ml Vial IV 02/05/24 17:41 4 mg STAT ONE Administration Ondansetron HCl Confirm 02/05/24 17:39 Ondansetron Hcl 4 Mg/2 Ml Vial Administered 02/05/24 17:40 Dose 4 mg .ROUTE .STK-MED ONE Piperacillin Sod/Tazobactam Sod Confirm 02/05/24 21:26 Piperacillin/Tazobactam Sodium 3.375 Gm Vial Administered 02/05/24 21:27 Dose 3.375 gm IV .STK-MED ONE Lab/Rad Data: Laboratory Result Diagrams 02/05/24 16:30 02/05/24 16:30 Laboratory Results 02/05/24 02/05/24 02/05/24 Range/Units 21:25 20:05 20:03 WBC (3.98-10.04) x10^3/uL RBC (3.93-5.22) x10^6/uL Hgb (11.2-15.7) g/dL Hct (34.1-44.9) % MCV (79.4-94.8) fL MCH (25.6-32.2) pg MCHC (32.2-35.5) g/dL RDW (11.7-14.4) % Plt Count (182-369) x10^3/uL MPV (9.4-12.3) fL Gran % (34.0-71.1) % Immature Gran % (Auto) (0.001-0.429) % Nucleat RBC Rel Count (0.00-0.2) % Eos # (Auto) (0.04-0.36) x10^3/uL Immature Gran # (Auto) (0.001-0.031) x10^3u/L Absolute Lymphs (auto) (1.18-3.74) x10^3/uL Absolute Monos (auto) (0.24-0.86) x10^3/uL Absolute Nucleated RBC (0.00-0.012) x10^3u/L Lymphocytes % (19.3-51.7) % Monocytes % (4.7-12.5) % Eosinophils % (0.7-5.8) % Basophils % (0.1-1.2) % Absolute Granulocytes (1.56-6.13) x10^3/uL Basophils # (0.01-0.08) x10^3/uL Sodium (135-145) mmol/L Potassium (3.5-5.1) mmol/L Chloride (98-107) mmol/L Carbon Dioxide (22-30) mmol/L Anion Gap (5-15) MEQ/L BUN (7-17) mg/dL Creatinine (0.52-1.04) mg/dL Estimated GFR ML/MIN Glucose (74-106) mg/dL Lactic Acid 0.8 (0.4-2.0) Calcium (8.4-10.2) mg/dL Total Bilirubin (0.2-1.3) mg/dL AST (14-36) U/L ALT (0-35) U/L Alkaline Phosphatase (38-126) U/L Troponin I < 0.012 (0.000-0.033) ng/mL NT-Pro-B Natriuret Pep (<300) pg/mL Serum Total Protein (6.3-8.2) g/dL Albumin (3.5-5.0) g/dL Procalcitonin 0.106 H (0.030-0.080) ng/mL Urine Color (Yellow) Urine Appearance (Clear) Urine pH (4.6-8.0) Ur Specific Edmons[place] (1.005-1.030) Urine Protein (Negative) Urine Glucose (UA) (Negative) mg/dL Urine Ketones (Negative) Urine Blood (Negative) Urine Nitrite (Negative) Urine Bilirubin (Negative) Urine Urobilinogen (0.2) mg/dL Ur Leukocyte Esterase (Negative) U Hyaline Cast (Auto) (0-2) /LPF Urine Microscopic RBC (0-5) /HPF Urine Microscopic WBC (0-5) /HPF Ur Epithelial Cells (None Seen) /HPF Urine Bacteria (None Seen) /HPF Urine Culture Reflexed (NO) Slides for Path Review 02/05/24 02/05/24 02/05/24 Range/Units 17:05 16:30 16:30 WBC (3.98-10.04) x10^3/uL RBC (3.93-5.22) x10^6/uL Hgb (11.2-15.7) g/dL Hct (34.1-44.9) % MCV (79.4-94.8) fL MCH (25.6-32.2) pg MCHC (32.2-35.5) g/dL RDW (11.7-14.4) % Plt Count (182-369) x10^3/uL MPV (9.4-12.3) fL Gran % (34.0-71.1) % Immature Gran % (Auto) (0.001-0.429) % Nucleat RBC Rel Count (0.00-0.2) % Eos # (Auto) (0.04-0.36) x10^3/uL Immature Gran # (Auto) (0.001-0.031) x10^3u/L Absolute Lymphs (auto) (1.18-3.74) x10^3/uL Absolute Monos (auto) (0.24-0.86) x10^3/uL Absolute Nucleated RBC (0.00-0.012) x10^3u/L Lymphocytes % (19.3-51.7) % Monocytes % (4.7-12.5) % Eosinophils % (0.7-5.8) % Basophils % (0.1-1.2) % Absolute Granulocytes (1.56-6.13) x10^3/uL Basophils # (0.01-0.08) x10^3/uL Sodium 136 (135-145) mmol/L Potassium 4.0 (3.5-5.1) mmol/L Chloride 103 (98-107) mmol/L Carbon Dioxide 27 (22-30) mmol/L Anion Gap 10.7 (5-15) MEQ/L BUN 15 (7-17) mg/dL Creatinine 0.36 L (0.52-1.04) mg/dL Estimated GFR 122.1 ML/MIN Glucose 156 H (74-106) mg/dL Lactic Acid (0.4-2.0) Calcium 9.0 (8.4-10.2) mg/dL Total Bilirubin 0.60 (0.2-1.3) mg/dL AST 19 (14-36) U/L ALT 17 (0-35) U/L Alkaline Phosphatase 104 (38-126) U/L Troponin I < 0.012 (0.000-0.033) ng/mL NT-Pro-B Natriuret Pep 291 278 (<300) pg/mL Serum Total Protein 7.3 (6.3-8.2) g/dL Albumin 3.7 (3.5-5.0) g/dL Procalcitonin (0.030-0.080) ng/mL Urine Color Dark Yellow A (Yellow) Urine Appearance Clear (Clear) Urine pH 7.0 (4.6-8.0) Ur Specific Edmonson >=1.030 A (1.005-1.030) Urine Protein 100 A (Negative) Urine Glucose (UA) Negative (Negative) mg/dL Urine Ketones 80 A (Negative) Urine Blood Negative (Negative) Urine Nitrite Negative (Negative) Urine Bilirubin Negative (Negative) Urine Urobilinogen 1.0 A (0.2) mg/dL Ur Leukocyte Esterase Trace A (Negative) U Hyaline Cast (Auto) NONE SEEN (0-2) /LPF Urine Microscopic RBC 0-2 (0-5) /HPF Urine Microscopic WBC 0-2 (0-5) /HPF Ur Epithelial Cells Few (None Seen) /HPF Urine Bacteria Few A (None Seen) /HPF Urine Culture Reflexed YES (NO) Slides for Path Review 02/05/24 Range/Units 16:30 WBC 17.7 H (3.98-10.04) x10^3/uL RBC 4.47 (3.93-5.22) x10^6/uL Hgb 11.6 (11.2-15.7) g/dL Hct 37.2 (34.1-44.9) % MCV 83.2 (79.4-94.8) fL MCH 26.0 (25.6-32.2) pg MCHC 31.2 L (32.2-35.5) g/dL RDW 15.9 H (11.7-14.4) % Plt Count 499 H (182-369) x10^3/uL MPV 8.4 L (9.4-12.3) fL Gran % 91.8 H (34.0-71.1) % Immature Gran % (Auto) 0.6 H (0.001-0.429) % Nucleat RBC Rel Count 0.0 (0.00-0.2) % Eos # (Auto) 0.03 L (0.04-0.36) x10^3/uL Immature Gran # (Auto) 0.10 H (0.001-0.031) x10^3u/L Absolute Lymphs (auto) 0.41 L (1.18-3.74) x10^3/uL Absolute Monos (auto) 0.88 H (0.24-0.86) x10^3/uL Absolute Nucleated RBC 0.00 (0.00-0.012) x10^3u/L Lymphocytes % 2.3 L (19.3-51.7) % Monocytes % 5.0 (4.7-12.5) % Eosinophils % 0.2 L (0.7-5.8) % Basophils % 0.1 (0.1-1.2) % Absolute Granulocytes 16.25 H (1.56-6.13) x10^3/uL Basophils # 0.02 (0.01-0.08) x10^3/uL Sodium (135-145) mmol/L Potassium (3.5-5.1) mmol/L Chloride (98-107) mmol/L Carbon Dioxide (22-30) mmol/L Anion Gap (5-15) MEQ/L BUN (7-17) mg/dL Creatinine (0.52-1.04) mg/dL Estimated GFR ML/MIN Glucose (74-106) mg/dL Lactic Acid (0.4-2.0) Calcium (8.4-10.2) mg/dL Total Bilirubin (0.2-1.3) mg/dL AST (14-36) U/L ALT (0-35) U/L Alkaline Phosphatase (38-126) U/L Troponin I (0.000-0.033) ng/mL NT-Pro-B Natriuret Pep (<300) pg/mL Serum Total Protein (6.3-8.2) g/dL Albumin (3.5-5.0) g/dL Procalcitonin (0.030-0.080) ng/mL Urine Color (Yellow) Urine Appearance (Clear) Urine pH (4.6-8.0) Ur Specific [place] (1.005-1.030) Urine Protein (Negative) Urine Glucose (UA) (Negative) mg/dL Urine Ketones (Negative) Urine Blood (Negative) Urine Nitrite (Negative) Urine Bilirubin (Negative) Urine Urobilinogen (0.2) mg/dL Ur Leukocyte Esterase (Negative) U Hyaline Cast (Auto) (0-2) /LPF Urine Microscopic RBC (0-5) /HPF Urine Microscopic WBC (0-5) /HPF Ur Epithelial Cells (None Seen) /HPF Urine Bacteria (None Seen) /HPF Urine Culture Reflexed (NO) Slides for Path Review YES - Progress Progress: improved Progress Note: 53-year-old female presents to our ED for evaluation of shortness of breath. 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 Physical exam reveals a 53-year-old female tachypneic tachycardic short of breath. X-ray reveals a opacified right hemithorax. Opacification approximately 60%. Leukocytosis observed on workup. Slightly elevated procalcitonin. Lactic acid within normal limits. Patient will likely require pigtail catheter drainage of the large malignant pleural effusion. Case discussed with Dr. Hill ICU physician at [facility] who accepts transfer. Plan of care discussed with patient. She agrees to transfer for further evaluation and treatment. Portions of this note were created with voice recognition technology. There may be grammatical, spelling, punctuation or sound alike errors Complexity problem addressed is moderate acute complicated. No critical care time. Complex of data reviewed and analyzed is . Test ordered test reviewed results analyzed and correlated clinically with history and physical exam. Management discussed with receiving physician Dr. Hill. Risk of complication and or risk of morbidity/mortality patient management is high. Patient requires transfer to higher level of care. Vital stable. Time spent to transfer patient approximately 30 minutes. Plan of care established for shared decision making. No social determinants of health present to impede follow-up. Portions of this note were created with voice recognition technology. There may be grammatical, spelling, punctuation or sound alike errors 02/05/24 22:35 Counseled pt/family regarding: lab results, diagnosis - Departure Departure Disposition: Transfer Clinical Impression: Dehydration, Leukocytosis, Thrombocytosis, Malignant pleural effusion, Bilateral pleural effusion Condition: Stable Critical Care Time: No Referrals: CASPER WOLFE MD [Primary Care Provider] - Follow up/PCP as directed
[2024-02-05 16:41] LABS: Absolute Neutrophil Ct (ANC) 16.25 x10^3/uL (1.56-6.13); BASOPHIL % 0.1 % (0.1-1.2); Basophil (Absolute #) 0.02 x10^3/uL (0.01-0.08); Eosinophil % 0.2 % (0.7-5.8); Eosinophil (Absolute #) 0.03 x10^3/uL (0.04-0.36); Hematocrit 37.2 % (34.1-44.9); Hemoglobin 11.6 g/dL (11.2-15.7); IMMATURE GRAN % 0.6 % (0.001-0.429); Lymphocyte (Absolute #) 0.41 x10^3/uL (1.18-3.74); Lymphocytes % 2.3 % (19.3-51.7); Mean Cell Volume 83.2 fL (79.4-94.8); Mean Corpuscular Hgb Concent. 31.2 g/dL (32.2-35.5); Mean Platelet Volume 8.4 fL (9.4-12.3); Monocyte (Absolute #) 0.88 x10^3/uL (0.24-0.86); Neutrophil % 91.8 % (34.0-71.1); Platelet Count 499 x10^3/uL (182-369); Red Blood Count 4.47 x10^6/uL (3.93-5.22); Red Cell Distribution Width 15.9 % (11.7-14.4); White Blood Count 17.7 x10^3/uL (3.98-10.04)
[2024-02-05 16:55] VITALS: TEMP 96.8
[2024-02-05 17:28] LABS: ALBUMIN 3.7 g/dL (3.5-5.0); ALKALINE PHOSPHATASE 104 U/L (38-126); ANION GAP 10.7 MEQ/L (5-15); BLOOD UREA NITROGEN 15 mg/dL (7-17); CHLORIDE 103 mmol/L (98-107); Carbon Dioxide 27 mmol/L (22-30); Creatinine 1 0.36 mg/dL (0.52-1.04); EST GLOMERULAR FILTRATION RATE 122.1 ML/MIN; Glucose 156 mg/dL (74-106); NT PRO BNPII 278 pg/mL (<300); SGOT/AST 19 U/L (14-36); SGPT/ALT 17 U/L (0-35); SODIUM 136 mmol/L (135-145); TROPONIN < 0.012 ng/mL (0.000-0.033); Total Protein 7.3 g/dL (6.3-8.2)
[2024-02-05 17:37] LABS: Appearance Clear (Clear); Bacteria Few /HPF (None Seen); Bilirubin Negative (Negative); Blood Negative (Negative); Epithelial Cells Few /HPF (None Seen); Glucose, Urine Negative (Negative); Hyaline Casts NONE SEEN /LPF (0-2); Ketones 80 (Negative); Leukocyte Esterase Trace (Negative); Nitrite Negative (Negative); Protein,Urine Dip 100 (Negative); RBC 0-2 /HPF (0-5); Specific Gravity >=1.030 (1.005-1.030); WBC 0-2 /HPF (0-5)
[2024-02-05 17:39] LABS: ADD URINE CULTURE? YES (NO)
[2024-02-05] MEDS ORDERED: MORPHINE SULFATE 2 MG INJ ONE (17:39)
[2024-02-05] MEDS ORDERED: Zofran 4 MG/2 ML VIAL ONE (17:39)
[2024-02-05] MEDS: Zofran 4 MG/2 ML VIAL IV ONE (17:40)
[2024-02-05] MEDS: MORPHINE SULFATE 2 MG INJ IV ONE (17:40)
[2024-02-05 18:05] LABS: Slide Review 1 YES
[2024-02-05 20:06] VITALS: RESP 29
[2024-02-05] MEDS ORDERED: Hydromorphone 1 mg/ml Injection ONE (21:22)
[2024-02-05] MEDS ORDERED: Sodium Chloride 100ML MINI-BAG PLUS 100 ML IV ONE (21:26)
[2024-02-05] MEDS ORDERED: PIPERACILLIN/TAZOBACTAM IV ONE (21:26)
[2024-02-05] MEDS: PIPERACILLIN/TAZOBACTAM 3.375 GM in Sodium Chloride 100ML MINI-BAG PLUS 100 ML IV ONE (21:29)
[2024-02-05] MEDS: Hydromorphone 1 mg/ml Injection IV ONE ×2 (21:29→21:30)
[2024-02-05 21:39] VITALS: BP 111/78; PULSE 117
[2024-02-05 22:03] VITALS: O2SAT 93
--- NOTE | 2024-02-06 08:34 | XRAY ---
Indication: Short of breath. Comparison: November 08, 2018 Portable chest now demonstrates cardiomegaly with large right/small left effusions and compressive atelectasis favoring cardiac decompensation/CHF. Superimposed pneumonia not completely excluded. Bony thorax intact.
== END 2024-02-05 22:52 | disposition short-term general hospital (02) ==
LOC: ED 15:53
DX: E86.0 Dehydration (principal); D72.829 Elevated white blood cell count, unspecified; D75.839 Thrombocytosis, unspecified; D49.89 Neoplasm of unspecified behavior of other specified sites; J91.0 Malignant pleural effusion; R06.02 Shortness of breath; I10 Essential (primary) hypertension; Z72.0 Tobacco use
CPT/HCPCS: 36000; 36415; 71045; 80053; 81001; 83605; 83880; 84145; 84484; 85025; 87040; 87086; 93005; 93041; 94760; 96365; 96374; 96375; 99285; J1170; J2270; J2405

== ENCOUNTER 2024-02-09 14:33 | Emergency (ER) | payer BC, MEDICARE ==
[2024-02-09 14:56] LABS: Absolute Neutrophil Ct (ANC) 7.29 x10^3/uL (1.56-6.13); BASOPHIL % 0.2 % (0.1-1.2); Basophil (Absolute #) 0.02 x10^3/uL (0.01-0.08); Eosinophil % 2.1 % (0.7-5.8); Eosinophil (Absolute #) 0.18 x10^3/uL (0.04-0.36); Hematocrit 35.1 % (34.1-44.9); IMMATURE GRAN # 0.06 x10^3u/L (0.001-0.031); IMMATURE GRAN % 0.7 % (0.001-0.429); Lymphocyte (Absolute #) 0.41 x10^3/uL (1.18-3.74); Lymphocytes % 4.8 % (19.3-51.7); Mean Cell Volume 83.8 fL (79.4-94.8); Mean Corpuscular Hemoglobin 26.3 pg (25.6-32.2); Mean Corpuscular Hgb Concent. 31.3 g/dL (32.2-35.5); Mean Platelet Volume 8.1 fL (9.4-12.3); Monocyte (Absolute #) 0.63 x10^3/uL (0.24-0.86); Monocytes % 7.3 % (4.7-12.5); Neutrophil % 84.9 % (34.0-71.1); Platelet Count 471 x10^3/uL (182-369); Red Blood Count 4.19 x10^6/uL (3.93-5.22); Red Cell Distribution Width 15.1 % (11.7-14.4); White Blood Count 8.6 x10^3/uL (3.98-10.04)
[2024-02-09 15:03] VITALS: TEMP 97.8
[2024-02-09] MEDS ORDERED: Sterile H2O 10 ml IJ ONE ×2 (15:03→16:30)
[2024-02-09] MEDS ORDERED: solu-MEDROL ONE ×2 (15:03→16:30)
[2024-02-09] MEDS: solu-MEDROL 125 MG, Sterile H2O 10 ml 2 ML IV ONE (15:04)
[2024-02-09 15:06] LABS: ALBUMIN 3.6 g/dL (3.5-5.0); ANION GAP 8.5 MEQ/L (5-15); BILIRUBIN,TOTAL 0.5 mg/dL (0.2-1.3); Calcium 9.3 mg/dL (8.4-10.2); Creatinine 1 0.43 mg/dL (0.52-1.04); MAGNESIUM 2.1 mg/dL (1.6-2.3); Potassium 3.9 mmol/L (3.5-5.1); Total Protein 7.5 g/dL (6.3-8.2)
[2024-02-09] MEDS ORDERED: Hydromorphone 1 mg/ml Injection ONE (15:07)
[2024-02-09] MEDS: Hydromorphone 1 mg/ml Injection IV ONE (15:07)
--- NOTE | 2024-02-09 15:09 | ERPHSYRPT ---
- History of Present Illness Time Seen by Provider: 02/09/24 15:06 Source: patient, family Exam Limitations: clinical condition Patient Subjective Stated Complaint: Pt reports she was here 02/05/24 due to shortness of breath. Pts physicians are at [facility] in [place] however sunday she was flown to [place] due to "my right lung was full of fluid". 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 Triage Nursing Assessment: Pt alert and oriented x3. Accompanied with spouse, wheeled to cot, wearing 3L NC. Pt wears 2L NC at home. Pt reports feeling short of breath, respirations 22, nonlabored. Skin w/p/d. Lifevest in place. Lidocaine patches in place along right lower extremity. Crackles in bilat lungs posteriorl y. Physician History: Pt reports she was here 02/05/24 due to shortness of breath. Pts physicians are at [facility] in [place] however sunday she was flown to [facility] due to "my right lung was full of fluid". 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 Timing/Duration: today Severity of Dyspnea-Max: moderate Severity of Dyspnea-Current: moderate Possible Cause: frequent episodes Associated Symptoms: edema, wheezing, weakness, ankle swelling, heaviness, lightheadedness, leg swelling, painful breathing Allergies/Adverse Reactions: bacitracin [From Neosporin ([id number])] Allergy (Verified 02/05/24 16:39) neomycin sulfate [From Neosporin ([id number])] Allergy (Verified 02/05/24 16:39) amoxicillin Adverse Reaction (Verified 02/09/24 14:50) Rash Home Medications: Albuterol 2.5 mg/3 ml Neb [Proventil 2.5 mg/3 ml Neb] 1 vial IH Q6HPRN PRN 02/09/24 [History] Bumetanide 1 tab PO DAILY 02/09/24 [History] Buspirone HCl 5 mg [Buspar 5 mg] 10 mg PO TID 02/09/24 [History] Clobetasol Propionate 0.05% [Temovate 0.05% CREAM] 1 applic TOP DAILY 02/09/24 [History] Hydrocodone/Acetaminophen [Hydrocodone-Acetamin 10-325 mg] 1 tab PO Q4HPRN PRN 02/09/24 [History] Lidocaine 1 patch TOP DAILY 02/09/24 [History] Potassium Chloride 1 tab PO BID 02/09/24 [History] Sennosides/Docusate Sodium [Docusate Sodium-Sennosides Tab] 8.6 mg PO DAILY 02/09/24 [History] Hx Tetanus, Diphtheria Vaccination/Date Given: No Hx Influenza Vaccination/Date Given: No Hx Pneumococcal Vaccination/Date Given: No Travel Risk - International Travel Have you traveled outside of the country in past 3 weeks: No - Emerging Infectious Disease Are you exhibiting symptoms associated with any current EIDs: No - Review of Systems Constitutional: Fatigue, Lethargy, Weakness, No Fever, No Chills Eyes: No Symptoms Ears, Nose, & Throat: No Symptoms Respiratory: Dyspnea, Wheezing, No Cough, No Cyanosis Cardiac: Edema, Orthopnea, PND, No Chest Pain, No Syncope Abdominal/Gastrointestinal: No Abdominal Pain, No Nausea, No Vomiting, No Diarrhea Genitourinary Symptoms: No Dysuria Musculoskeletal: Back Pain, Myalgias, No Neck Pain Skin: No Symptoms, No Rash Neurological: No Dizziness, No Focal Weakness, No Sensory Changes Psychological: No Symptoms Endocrine: No Symptoms Hematologic/Lymphatic: No Symptoms Immunological/Allergic: No Symptoms All Other Systems: Reviewed and Negative - Past Medical History Pertinent Past Medical History: Yes ENT History: Glaucoma Cardiac History: Congestive Heart Failure, Hypertension Respiratory History: COPD, Lung Cancer Musculoskeletal History: Arthritis GI Medical History: Hernia Psycho-Social History: Depression Other Medical History: scoriatic arthritis - Past Surgical History Past Surgical History: Yes Gastrointestinal: Hernia Repair Musculoskeletal: Orthopedic Surgery Female Surgical History: Hysterectomy Other Surgical History: 01/11 knee surgery right shoulder right ankle injury in past - Female History Hx Last Menstrual Period: complete hysterectomy - Social History Smoking Status: Current every day smoker How long have you smoked: 20 Exposure to second hand smoke: No Drug Use: none Patient Lives Alone: No - Social Determinants of Health Will the patient participate in the screening: Declined to provide - Nursing Vital Signs Nursing Vital Signs: Initial Vital Signs Temperature 97.8 F 02/09/24 14:34 Pulse Rate 112 H 02/09/24 14:34 Respiratory Rate 22 02/09/24 14:34 Blood Pressure 155/78 02/09/24 14:34 O2 Sat by Pulse Oximetry 95 02/09/24 14:34 Pain Scale Pain Intensity 6 - Physical Exam General Appearance: moderate distress, alert Eye Exam: PERRL/EOMI Neck Exam: normal inspection, supple Respiratory Exam: diminished breath sounds, crackles/rales, rhonchi, wheezing Cardiovascular/Chest Exam: normal heart sounds, regular rate/rhythm Abdominal/Gastrointestinal Exam: soft, No tenderness, No distention, No mass Extremity Exam: non-tender, normal range of motion, normal inspection, no calf tenderness, no pedal edema Neurologic Exam: alert, oriented x 3, cooperative, egg packer II-XII nml as tested, sensation nml, No motor deficits Skin Exam: normal color, warm, No dry SpO2 Interpretation: normal SpO2: 95 O2 Delivery: Room Air - Course Nursing assessment & vital signs reviewed: Yes EKG Interpreted by Me: Sinus Rhythm Rhythm Strip: Normal Sinus Rhythm Ordered Tests: Active Orders 24 hr Category Date Time Status EKG-ER Only STAT Care 02/09/24 14:48 Active Oxygen-ED Only Nasal Cannula 3 lpm Care 02/09/24 14:48 Active CHEST WITH CONTRAST [CT] Stat Exams 02/09/24 14:49 Ordered CBC W DIFF Stat Lab 02/09/24 14:45 Completed CMP Stat Lab 02/09/24 14:45 Completed D-DIMER QUANTITATIVE Stat Lab 02/09/24 14:45 Completed MAGNESIUM Stat Lab 02/09/24 14:45 Completed NT PRO BNPII Stat Lab 02/09/24 14:45 Completed TROPONIN Q4H Lab 02/09/24 14:45 Completed TROPONIN Q4H Lab 02/09/24 19:00 Ordered TROPONIN Q4H Lab 02/09/24 23:00 Ordered UA W/RFX UR CULTURE Stat Lab 02/09/24 14:49 Ordered Respiratory Therapy Assessment DAILY RT 02/09/24 15:18 Active Medication Summary Generic Name Dose Route Start Last Admin Trade Name Freq PRN Reason Stop Dose Admin Sodium Chloride 1,000 mls @ 100 mls/hr 02/09/24 15:00 Sodium Chloride 0.9% 1000 Ml IV 03/10/24 14:59 .Q10H [place] Discontinued Medications Generic Name Dose Route Start Last Admin Trade Name Freq PRN Reason Stop Dose Admin Albuterol/Ipratropium 3 ml 02/09/24 14:48 02/09/24 15:16 Ipratropium/Albuterol Sulfate 3 Ml Ampul.Neb IH 02/09/24 14:49 3 ml STAT ONE Administration Albuterol/Ipratropium Confirm 02/09/24 15:12 Ipratropium/Albuterol Sulfate 3 Ml Ampul.Neb Administered 02/09/24 15:13 Dose 3 ml IH .STK-MED ONE Methylprednisolone Sodium 0 mg 02/09/24 14:48 02/09/24 15:04 Succinate 125 mg/ Sterile IV 02/09/24 14:49 125 mg Water 2 ml STAT ONE Administration Methylprednisolone Sodium 0 mg 02/09/24 16:27 Succinate 125 mg/ Sterile IV 02/09/24 16:28 Water 10 ml STAT ONE Hydromorphone HCl 1 mg 02/09/24 15:06 02/09/24 15:07 Hydromorphone 1 Mg/1ml Inj IV 02/09/24 15:07 1 mg STAT ONE Administration Hydromorphone HCl Confirm 02/09/24 15:07 Hydromorphone 1 Mg/1ml Inj Administered 02/09/24 15:08 Dose 1 mg .ROUTE .STK-MED ONE Methylprednisolone Sodium Succinate Confirm 02/09/24 15:03 Methylprednis Sod Succ 125 Mg/2 Ml Vial Administered 02/09/24 15:04 Dose 125 mg .ROUTE .STK-MED ONE Sterile Water Confirm 02/09/24 15:03 Water For Injection,Sterile 10 Ml Vial Administered 02/09/24 15:04 Dose 10 ml IJ .STK-MED ONE Lab/Rad Data: Laboratory Result Diagrams 02/09/24 14:45 02/09/24 14:45 Laboratory Results 02/09/24 02/09/24 02/09/24 Range/Units 14:55 14:45 14:45 WBC (3.98-10.04) x10^3/uL RBC (3.93-5.22) x10^6/uL Hgb (11.2-15.7) g/dL Hct (34.1-44.9) % MCV (79.4-94.8) fL MCH (25.6-32.2) pg MCHC (32.2-35.5) g/dL RDW (11.7-14.4) % Plt Count (182-369) x10^3/uL MPV (9.4-12.3) fL Gran % (34.0-71.1) % Immature Gran % (Auto) (0.001-0.429) % Nucleat RBC Rel Count (0.00-0.2) % Eos # (Auto) (0.04-0.36) x10^3/uL Immature Gran # (Auto) (0.001-0.031) x10^3u/L Absolute Lymphs (auto) (1.18-3.74) x10^3/uL Absolute Monos (auto) (0.24-0.86) x10^3/uL Absolute Nucleated RBC (0.00-0.012) x10^3u/L Lymphocytes % (19.3-51.7) % Monocytes % (4.7-12.5) % Eosinophils % (0.7-5.8) % Basophils % (0.1-1.2) % Absolute Granulocytes (1.56-6.13) x10^3/uL Basophils # (0.01-0.08) x10^3/uL D-Dimer 1.71 H* (0.0-0.50) mg/L Sodium (135-145) mmol/L Potassium (3.5-5.1) mmol/L Chloride (98-107) mmol/L Carbon Dioxide (22-30) mmol/L Anion Gap (5-15) MEQ/L BUN (7-17) mg/dL Creatinine (0.52-1.04) mg/dL Estimated GFR ML/MIN Glucose (74-106) mg/dL Calcium (8.4-10.2) mg/dL Magnesium (1.6-2.3) mg/dL Total Bilirubin (0.2-1.3) mg/dL AST (14-36) U/L ALT (0-35) U/L Alkaline Phosphatase (38-126) U/L Troponin I < 0.012 (0.000-0.033) ng/mL NT-Pro-B Natriuret Pep 359 (<300) pg/mL Serum Total Protein (6.3-8.2) g/dL Albumin (3.5-5.0) g/dL Influenza Type A Ag NEGATIVE (NEGATIVE) Influenza Type B Ag NEGATIVE (NEGATIVE) RSV (PCR) NEGATIVE (NEGATIVE) SARS-CoV-2 (PCR) NEGATIVE (NEGATIVE) Slides for Path Review 02/09/24 02/09/24 Range/Units 14:45 14:45 WBC 8.6 (3.98-10.04) x10^3/uL RBC 4.19 (3.93-5.22) x10^6/uL Hgb 11.0 L (11.2-15.7) g/dL Hct 35.1 (34.1-44.9) % MCV 83.8 (79.4-94.8) fL MCH 26.3 (25.6-32.2) pg MCHC 31.3 L (32.2-35.5) g/dL RDW 15.1 H (11.7-14.4) % Plt Count 471 H (182-369) x10^3/uL MPV 8.1 L (9.4-12.3) fL Gran % 84.9 H (34.0-71.1) % Immature Gran % (Auto) 0.7 H (0.001-0.429) % Nucleat RBC Rel Count 0.0 (0.00-0.2) % Eos # (Auto) 0.18 (0.04-0.36) x10^3/uL Immature Gran # (Auto) 0.06 H (0.001-0.031) x10^3u/L Absolute Lymphs (auto) 0.41 L (1.18-3.74) x10^3/uL Absolute Monos (auto) 0.63 (0.24-0.86) x10^3/uL Absolute Nucleated RBC 0.00 (0.00-0.012) x10^3u/L Lymphocytes % 4.8 L (19.3-51.7) % Monocytes % 7.3 (4.7-12.5) % Eosinophils % 2.1 (0.7-5.8) % Basophils % 0.2 (0.1-1.2) % Absolute Granulocytes 7.29 H (1.56-6.13) x10^3/uL Basophils # 0.02 (0.01-0.08) x10^3/uL D-Dimer (0.0-0.50) mg/L Sodium 137 (135-145) mmol/L Potassium 3.9 (3.5-5.1) mmol/L Chloride 95 L (98-107) mmol/L Carbon Dioxide 37 H (22-30) mmol/L Anion Gap 8.5 (5-15) MEQ/L BUN 12 (7-17) mg/dL Creatinine 0.43 L (0.52-1.04) mg/dL Estimated GFR 117.0 ML/MIN Glucose 117 H (74-106) mg/dL Calcium 9.3 (8.4-10.2) mg/dL Magnesium 2.1 (1.6-2.3) mg/dL Total Bilirubin 0.50 (0.2-1.3) mg/dL AST 18 (14-36) U/L ALT 16 (0-35) U/L Alkaline Phosphatase 107 (38-126) U/L Troponin I (0.000-0.033) ng/mL NT-Pro-B Natriuret Pep (<300) pg/mL Serum Total Protein 7.5 (6.3-8.2) g/dL Albumin 3.6 (3.5-5.0) g/dL Influenza Type A Ag (NEGATIVE) Influenza Type B Ag (NEGATIVE) RSV (PCR) (NEGATIVE) SARS-CoV-2 (PCR) (NEGATIVE) Slides for Path Review YES - Progress Progress: improved Air Movement: fair Progress Note: 02/09/24 16:29 Patient all laboratory data reviewed. CT chest with contrast which was done at [facility] was reviewed findings are as follow. CT chest is showing opacified bronchus intermedius and peripheral right middle and lower lobe airways possibility of mucous plugging or aspiration or mass. Patient also has a moderate to large right pleural effusion. Patient is also left subclavian artery origin lumen stenosis. Patient also has a multiple bilateral anterior and lateral rib fracture which is consistent with patient pr evious cardiac arrest followed by chest compression. I discussed all this findings in detail with patient and her . I advised them to follow-up at [facility] for further workup including bronchoscopy and or pleural effusion drainage to find out exact it your pathology. There all question were answered satisfactorily.. Blood Culture(s) Obtained: No Antibiotics given: No Counseled pt/family regarding: lab results, diagnosis, need for follow-up, rad results Medical Desision Making - Independent Historian Additional History obtained from: Spouse - Risk of complications The pt has a high risk of morbidity or mortality based on: Need for major surgery in patient with known risk factors - Departure Departure Disposition: Home Clinical Impression: Malignant pleural effusion, Stenosis of subclavian artery, Right middle lobe pulmonary nodule Condition: Stable Critical Care Time: Yes Critical Care Time(excluding separately billable procedures): Critical 30-74 mins Referrals: CASPER WOLFE MD [Primary Care Provider] - Follow up/PCP as directed Additional Instructions: Discharge/Care Plan DAVID GREENFIELD was seen on 02/09/24 in the Emergency Room. The patient was counseled regarding Diagnosis,Lab results, Imaging studies, need for follow up and when to return to the Emergency Room. Prescriptions given: Discharge Note I have spoken with the patient and/or caregivers. I have explained the patient's condition, diagnosis and treatment plan based on the information available to me at this time. I have answered the patient's and/or caregiver's questions and addressed any concerns. The patient and/or caregivers have as good understanding of the patient's diagnosis, condition and treatment plan as can be expected at this point. The vital signs have been stable. The patient's condition is stable and appropriate for discharge from the emergency department. The patient will pursue further outpatient evaluation with the primary care physician or other designated or consulting physician as outlined in the discharge instructions. The patient and/or caregivers are agreeable to this plan of care and follow-up instructions have been explained in detail. The patient and/or caregivers have received these instruction. The patient/and or caregivers are aware that any significant change in condition or worsening of symptoms should prompt an immediate return to this or the closest emergency department or call 911. DAVID GREENFIELD was seen on 02/09/24 n the Emergency Room. At that time you were treated for an emergent condition, during your visit Laboratory, Radiology and/or other procedures may have been ordered. It is very important that you follow-up with your Primary Care Physician CASPER WOLFE within the next 24-48 hours to review your Emergency Room visit and the final results of testing that was ordered. Some test results such as Urine Cultures, Blood Cultures, and other cultures if ordered will not be finalized for 24-48 hours. If you do not have a Primary Care Provider please call the medical records department at [phone] ext [phone] to obtain a copy of your results or you may sign into our patient portal to obtain these results by visiting us @ [email or web address] and completing the following steps: 1. Click on the Patient Portal link 2. Click the Patient Self Enrollment Link to complete the enrollment form and entering your 3. Once the enrollment form is completed you will receive an email with a temporary ID and password at the email address you provided. 4. Next choose a user name and password. Your user name must be at least 4 characters long and your password must be at least 4 characters long. 5. Choose a security question from the list and provide your answer to the question. If you already have signed into the Health Portal you may access your Health Care Information 04/12 by the following steps: 1. Login to our website @ [email or web address] 2. Enter your original user name and password. FAQS The [facility] Health Portal is an online tool that contains your Lab Results, Radiology Reports, Visit History, Discharge Instructions and Health Summary Lab and Radiology Results will not be available for 72 hours on the portal. The Portal is a secure site, passwords are encryted and URLs are re-written so they cannot be copied and pasted. You and authorized family members are the only ones who can access your Portal. Also there is a timeout feature that protects your information if you leave the Portal page open. If you have technical difficulty please use the Contact Us link on the page this will allow you to submit any questions you have regarding the Portal or you may contact the Medical Record Department at [phone] ext [phone]. Prescriptions: Prednisone 20 mg [Deltasone 20 mg] 10 mg PO BID #30 tablet Hydrocodone/Acetaminophen [[place] 10-325 mg] 1 tablet PO QID #20 tablet MDD 4 a day
[2024-02-09] MEDS ORDERED: DUONEB 0.5-3 MG/3 ml Neb IH ONE (15:12)
[2024-02-09] MEDS: DUONEB 0.5-3 MG/3 ml Neb IH ONE (15:16)
[2024-02-09 15:18] LABS: NT PRO BNPII 359 pg/mL (<300); TROPONIN < 0.012 ng/mL (0.000-0.033)
[2024-02-09 15:38] LABS: INFLUENZA A NEGATIVE (NEGATIVE); INFLUENZA B NEGATIVE (NEGATIVE); RESPIRATORY SYNCTIAL VIRUS NEGATIVE (NEGATIVE); SARS-CoV-2 Xpert Express NEGATIVE (NEGATIVE)
[2024-02-09 16:03] LABS: Slide Review 1 YES
[2024-02-09] MEDS: solu-MEDROL 125 MG, Sterile H2O 10 ml 10 ML IV ONE (16:31)
[2024-02-09] MEDS: Sodium Chloride 0.9% 1000 ML 1,000 ML IV SCH (16:44)
[2024-02-09 17:16] VITALS: BP 160/86; PULSE 104; RESP 20; O2SAT 97
== END 2024-02-09 17:11 | disposition home or self-care (01) ==
LOC: ED 14:33
DX: I70.8 Atherosclerosis of other arteries (principal); J91.0 Malignant pleural effusion; R91.1 Solitary pulmonary nodule; I11.0 Hypertensive heart disease with heart failure; I50.9 Heart failure, unspecified; Z79.52 Long term (current) use of systemic steroids; Z79.891 Long term (current) use of opiate analgesic; Z79.899 Other long term (current) drug therapy; Z72.0 Tobacco use
CPT/HCPCS: 0241U; 36000; 36415; 80053; 83735; 83880; 84484; 85025; 85379; 93005; 94640; 96374; 96375; 96376; 99291; 99284; J1170; J2919; A9270-GY

== ENCOUNTER 2024-02-10 11:31 | Emergency (ER) | payer BC, MEDICARE ==
[2024-02-10 11:37] VITALS: TEMP 97.2
[2024-02-10] MEDS ORDERED: Zofran 4 MG/2 ML VIAL ONE (12:06)
[2024-02-10] MEDS ORDERED: Hydromorphone 1 mg/ml Injection ONE ×3 (12:07→16:24)
[2024-02-10] MEDS: Zofran 4 MG/2 ML VIAL IV ONE (12:16)
[2024-02-10] MEDS: Hydromorphone 1 mg/ml Injection IV ONE ×3 (12:17→16:24)
--- NOTE | 2024-02-10 12:36 | ERPHSYRPT ---
- History of Present Illness Time Seen by Provider: 02/10/24 11:43 Source: patient, family Exam Limitations: no limitations Patient Subjective Stated Complaint: pt here for pain and increase sob, pt has a tumor on right lung and around heart. she states the pain and sob is getting worse, she was seen in er yesterday for samething. Triage Nursing Assessment: pt alert, anxious,appears ill, resp labored, diminished bs, o2 at 3 l nc as per home, skin w.d.pale. 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 Patient reports she cannot get comfortable at all because of pain all over her on the back, lower extremities and lying down makes her breathing really worse. Patient was seen in this ER yesterday as well. Denies any fever or chills. Patient had right lung pleural effusion which was not drained but she was given Lasix which did help initially but now again having increased shortness of breath. Although swelling in the lower extremities is improved. Patient reports "I do not want to live in this miserable condition". Patient had undergone biopsy which she was coded x 3 and has multiple broken ribs as well. Allergies/Adverse Reactions: bacitracin [From Neosporin ([id number])] Allergy (Verified 02/10/24 11:35) neomycin sulfate [From Neosporin ([id number])] Allergy (Verified 02/10/24 11:35) amoxicillin Adverse Reaction (Verified 02/10/24 11:35) Rash Home Medications: Albuterol 2.5 mg/3 ml Neb [Proventil 2.5 mg/3 ml Neb] 1 vial IH Q6HPRN PRN 02/09/24 [History] Bumetanide 1 tab PO DAILY 02/09/24 [History] Buspirone HCl 5 mg [Buspar 5 mg] 10 mg PO TID 02/09/24 [History] Clobetasol Propionate 0.05% [Temovate 0.05% CREAM] 1 applic TOP DAILY 02/09/24 [History] Hydrocodone/Acetaminophen [Hydrocodone-Acetamin 10-325 mg] 1 tab PO Q4HPRN PRN 02/09/24 [History] Lidocaine 1 patch TOP DAILY 02/09/24 [History] Potassium Chloride 1 tab PO BID 02/09/24 [History] Sennosides/Docusate Sodium [Docusate Sodium-Sennosides Tab] 8.6 mg PO DAILY 02/09/24 [History] Hx Tetanus, Diphtheria Vaccination/Date Given: No Hx Influenza Vaccination/Date Given: No Hx Pneumococcal Vaccination/Date Given: No Immunizations Up to Date: Yes Travel Risk - International Travel Have you traveled outside of the country in past 3 weeks: No - Emerging Infectious Disease Are you exhibiting symptoms associated with any current EIDs: No - Review of Systems Constitutional: No Symptoms Eyes: No Symptoms Ears, Nose, & Throat: No Symptoms Respiratory: Cough, Dyspnea, Dyspnea on Exertion (PALACIO) Cardiac: Chest Pain Abdominal/Gastrointestinal: Nausea Genitourinary Symptoms: No Symptoms Musculoskeletal: Arthralgias, Back Pain Skin: No Symptoms Neurological: Dizziness Endocrine: No Symptoms Hematologic/Lymphatic: No Symptoms - Past Medical History Pertinent Past Medical History: Yes ENT History: Glaucoma Cardiac History: Congestive Heart Failure, Hypertension Respiratory History: COPD, Lung Cancer Musculoskeletal History: Arthritis GI Medical History: Hernia Psycho-Social History: Depression Other Medical History: scoriatic arthritis - Past Surgical History Past Surgical History: Yes Gastrointestinal: Hernia Repair Musculoskeletal: Orthopedic Surgery Female Surgical History: Hysterectomy Other Surgical History: 01/11 knee surgery right shoulder right ankle injury in past - Female History Hx Last Menstrual Period: hyster Hx Now: No - Social History Smoking Status: Current every day smoker How long have you smoked: 20 Exposure to second hand smoke: No Drug Use: none Patient Lives Alone: No - Social Determinants of Health Will the patient participate in the screening: Declined to provide - Nursing Vital Signs Nursing Vital Signs: Initial Vital Signs Pulse Rate 142 H 02/10/24 11:35 Respiratory Rate 38 H 02/10/24 11:35 Blood Pressure 136/91 02/10/24 11:35 O2 Sat by Pulse Oximetry 96 02/10/24 11:35 Pain Scale Pain Intensity 8 - Physical Exam General Appearance: moderate distress, alert Eye Exam: PERRL/EOMI Ears, Nose, Throat Exam: hearing grossly normal Neck Exam: normal inspection, supple, full range of motion Respiratory Exam: respiratory distress, diminished breath sounds, crackles/rales Cardiovascular/Chest Exam: tachycardia Abdominal/Gastrointestinal Exam: soft, normal bowel sounds, No tenderness Extremity Exam: non-tender, normal range of motion Neurologic Exam: alert, oriented x 3, cooperative, 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 tested Skin Exam: normal color SpO2 Interpretation: O2 applied SpO2: 93 O2 Delivery: Nasal Cannula - Course EKG Interpreted by Me: RATE (118), A-fib, Left [place] Deviation, NORMAL INTERVALS, Left Bundle Branch Block, Non-specific ST Changes Ordered Tests: Active Orders 24 hr Category Date Time Status CHEST 1 VIEW (PORTABLE) Stat Exams 02/10/24 12:20 Completed BLOOD CULTURE Stat Lab 02/10/24 14:38 Received CBC W DIFF Stat Lab 02/10/24 12:09 Completed CK-Creatinine Phosphokinase Stat Lab 02/10/24 12:05 Completed CMP Stat Lab 02/10/24 12:05 Completed NT PRO BNPII Stat Lab 02/10/24 12:05 Completed TROPONIN Q4H Lab 02/10/24 12:05 Completed Medication Summary Discontinued Medications Generic Name Dose Route Start Last Admin Trade Name Freq PRN Reason Stop Dose Admin Diltiazem HCl 10 mg 02/10/24 13:35 02/10/24 13:44 Diltiazem Hcl Iv 5 Mg/Ml Vial IV 02/10/24 13:36 10 mg STAT ONE Administration Diltiazem HCl Confirm 02/10/24 13:42 Diltiazem Hcl Iv 5 Mg/Ml Vial Administered 02/10/24 13:43 Dose 50 mg IV .STK-MED ONE Hydromorphone HCl Confirm 02/10/24 12:07 Hydromorphone 1 Mg/1ml Inj Administered 02/10/24 12:08 Dose 1 mg .ROUTE .STK-MED ONE Hydromorphone HCl 1 mg 02/10/24 12:08 02/10/24 12:17 Hydromorphone 1 Mg/1ml Inj IV 02/10/24 12:09 1 mg STAT ONE Administration Hydromorphone HCl 1 mg 02/10/24 12:36 02/10/24 12:39 Hydromorphone 1 Mg/1ml Inj IV 02/10/24 12:37 1 mg STAT ONE Administration Hydromorphone HCl Confirm 02/10/24 12:38 Hydromorphone 1 Mg/1ml Inj Administered 02/10/24 12:39 Dose 1 mg .ROUTE .STK-MED ONE Hydromorphone HCl 1 mg 02/10/24 16:21 02/10/24 16:24 Hydromorphone 1 Mg/1ml Inj IV 02/10/24 16:22 1 mg STAT ONE Administration Hydromorphone HCl Confirm 02/10/24 16:24 Hydromorphone 1 Mg/1ml Inj Administered 02/10/24 16:25 Dose 1 mg .ROUTE .STK-MED ONE Diltiazem HCl 100 mls @ 5 mls/hr 02/10/24 13:35 02/10/24 15:13 Cardizem Drip 100 Mg/100 Ml D5w IV 03/11/24 13:34 7.5 mg/hr .Q20H PRN 7.5 mls/hr HEART RATE/ A-FIB Titration Protocol 5 MG/HR Levofloxacin/Dextrose 750 mg in 150 mls @ 100 mls/hr 02/10/24 14:13 02/10/24 16:08 Levofloxacin 750mg/150ml D5w IV 02/10/24 15:42 Infused STAT STA Infusion Levofloxacin/Dextrose Confirm 02/10/24 14:22 Levofloxacin 750mg/150ml D5w Administered 02/10/24 14:23 Dose 750 mg in 150 mls @ ud IV .STK-MED ONE Diltiazem HCl Confirm 02/10/24 13:42 Cardizem Drip 100 Mg/100 Ml D5w Administered 02/10/24 13:43 Dose 100 mls @ ud IV .STK-MED ONE Lorazepam 1 mg 02/10/24 14:13 02/10/24 14:23 Lorazepam 2 Mg/1 Ml 2 Mg Vial IV 02/10/24 14:14 1 mg STAT ONE Administration Lorazepam Confirm 02/10/24 14:22 Lorazepam 2 Mg/1 Ml 2 Mg Vial Administered 02/10/24 14:23 Dose 2 mg .ROUTE .STK-MED ONE Ondansetron HCl Confirm 02/10/24 12:06 Ondansetron Hcl 4 Mg/2 Ml Vial Administered 02/10/24 12:07 Dose 4 mg .ROUTE .STK-MED ONE Ondansetron HCl 4 mg 02/10/24 12:08 02/10/24 12:16 Ondansetron Hcl 4 Mg/2 Ml Vial IV 02/10/24 12:09 4 mg STAT ONE Administration Lab/Rad Data: Laboratory Result Diagrams 02/10/24 12:09 02/10/24 12:05 Laboratory Results 02/10/24 02/10/24 02/10/24 Range/Units 12:09 12:05 12:05 WBC 15.4 H (3.98-10.04) x10^3/uL RBC 4.52 (3.93-5.22) x10^6/uL Hgb 11.7 (11.2-15.7) g/dL Hct 38.0 (34.1-44.9) % MCV 84.1 (79.4-94.8) fL MCH 25.9 (25.6-32.2) pg MCHC 30.8 L (32.2-35.5) g/dL RDW 15.1 H (11.7-14.4) % Plt Count 534 H (182-369) x10^3/uL MPV 8.3 L (9.4-12.3) fL Gran % 91.8 H (34.0-71.1) % Immature Gran % (Auto) 0.6 H (0.001-0.429) % Nucleat RBC Rel Count 0.0 (0.00-0.2) % Eos # (Auto) 0.01 L (0.04-0.36) x10^3/uL Immature Gran # (Auto) 0.09 H (0.001-0.031) x10^3u/L Absolute Lymphs (auto) 0.34 L (1.18-3.74) x10^3/uL Absolute Monos (auto) 0.81 (0.24-0.86) x10^3/uL Absolute Nucleated RBC 0.00 (0.00-0.012) x10^3u/L Lymphocytes % 2.2 L (19.3-51.7) % Monocytes % 5.2 (4.7-12.5) % Eosinophils % 0.1 L (0.7-5.8) % Basophils % 0.1 (0.1-1.2) % Absolute Granulocytes 14.17 H (1.56-6.13) x10^3/uL Basophils # 0.01 (0.01-0.08) x10^3/uL Sodium 135 (135-145) mmol/L Potassium 3.6 (3.5-5.1) mmol/L Chloride 97 L (98-107) mmol/L Carbon Dioxide 33 H (22-30) mmol/L Anion Gap 8.6 (5-15) MEQ/L BUN 14 (7-17) mg/dL Creatinine 0.41 L (0.52-1.04) mg/dL Estimated GFR 118.3 ML/MIN Glucose 150 H (74-106) mg/dL Calcium 9.3 (8.4-10.2) mg/dL Total Bilirubin 0.50 (0.2-1.3) mg/dL AST 19 (14-36) U/L ALT 22 (0-35) U/L Alkaline Phosphatase 106 (38-126) U/L Creatine Kinase 23 L (30-135) U/L Troponin I < 0.012 (0.000-0.033) ng/mL NT-Pro-B Natriuret Pep 1560 (<300) pg/mL Serum Total Protein 7.4 (6.3-8.2) g/dL Albumin 3.7 (3.5-5.0) g/dL Slides for Path Review YES - Progress Progress: re-examined Air Movement: fair Progress Note: 02/10/24 14:14 53 years old female with complicated medical history with a tumor around her heart with bilateral pleural effusion is evaluated for increasing shortness of breath and pain. Patient is currently on 4 L oxygen. She is given multiple doses of pain medications with minimal relief. She is given Ativan as well as patient was very anxious. EKG is A-fib RVR, started on Cardizem and heart rate improved from 140s to 110s. Chest x-ray showed bilateral pleural effusion more on the right than the left reviewed by me, official report is pending. Given a dose of Levaquin. Workup showed white count of 15, chemistries fairly unremarkable. Patient was recently seen at [facility] and over there she refused further treatment but I have an lengthy discussion with patient and family and she wants to go back to [facility] now. I have called transfer center, discussed with Alison NIELSON for Dr. Mills in ICU, reviewed history, workup and agreed with transfer. 02/10/24 14:16 Blood Culture(s) Obtained: Yes Antibiotics given: Yes Discussed with Dr.: Other ([facility] for Dr. Mills) Counseled pt/family regarding: lab results, diagnosis, rad results Medical Desision Making - Independent Historian Additional History obtained from: Spouse - Discussion of managment Care discussed with:: specialist (Alison NIELSON for Dr. Mills ICU) Reviewed:: Test results Agreed on:: Treatment plan Will see patient: in hospital - Diagnostic Testing Diagnostic test were ordered, analyzed, and reviewed by me: Yes Radiological Interpretation: Interpreted by me, Reviewed by me - Risk of complications The pt has a mod risk of morbidity or mortality based on: Need for prescription drug management The pt has a high risk of morbidity or mortality based on: Decision regarding hospitilization or escalation of hosp level of care - Departure Departure Disposition: Transfer Clinical Impression: Bilateral pleural effusion, Atrial fibrillation with RVR Condition: Fair Critical Care Time: Yes Critical Care Time(excluding separately billable procedures): Critical 30-74 mins Referrals: CASPER WOLFE MD [Primary Care Provider] - Follow up/PCP as directed
[2024-02-10 13:11] LABS: Absolute Neutrophil Ct (ANC) 14.17 x10^3/uL (1.56-6.13); BASOPHIL % 0.1 % (0.1-1.2); Basophil (Absolute #) 0.01 x10^3/uL (0.01-0.08); Eosinophil % 0.1 % (0.7-5.8); Eosinophil (Absolute #) 0.01 x10^3/uL (0.04-0.36); Hemoglobin 11.7 g/dL (11.2-15.7); IMMATURE GRAN # 0.09 x10^3u/L (0.001-0.031); IMMATURE GRAN % 0.6 % (0.001-0.429); Lymphocyte (Absolute #) 0.34 x10^3/uL (1.18-3.74); Lymphocytes % 2.2 % (19.3-51.7); Mean Cell Volume 84.1 fL (79.4-94.8); Mean Corpuscular Hemoglobin 25.9 pg (25.6-32.2); Mean Corpuscular Hgb Concent. 30.8 g/dL (32.2-35.5); Mean Platelet Volume 8.3 fL (9.4-12.3); Monocyte (Absolute #) 0.81 x10^3/uL (0.24-0.86); Monocytes % 5.2 % (4.7-12.5); Neutrophil % 91.8 % (34.0-71.1); Platelet Count 534 x10^3/uL (182-369); Red Blood Count 4.52 x10^6/uL (3.93-5.22); Red Cell Distribution Width 15.1 % (11.7-14.4); White Blood Count 15.4 x10^3/uL (3.98-10.04)
[2024-02-10 13:24] LABS: ALBUMIN 3.7 g/dL (3.5-5.0); ANION GAP 8.6 MEQ/L (5-15); BILIRUBIN,TOTAL 0.5 mg/dL (0.2-1.3); Calcium 9.3 mg/dL (8.4-10.2); Creatinine 1 0.41 mg/dL (0.52-1.04); EST GLOMERULAR FILTRATION RATE 118.3 ML/MIN; Potassium 3.6 mmol/L (3.5-5.1); Total Protein 7.4 g/dL (6.3-8.2)
[2024-02-10] MEDS ORDERED: Cardizem IV 50 MG/10 ML IV ONE (13:42)
[2024-02-10] MEDS ORDERED: CARDIZEM DRIP 100 MG/100 ML D5W 100 ML IV ONE (13:42)
[2024-02-10] MEDS: Cardizem IV 50 MG/10 ML IV ONE (13:44)
[2024-02-10] MEDS: CARDIZEM DRIP 100 MG/100 ML D5W 100 ML IV PRN (13:46)
[2024-02-10 13:55] LABS: NT PRO BNPII 1560 pg/mL (<300); TROPONIN < 0.012 ng/mL (0.000-0.033)
[2024-02-10 14:02] LABS: Slide Review 1 YES
[2024-02-10] MEDS ORDERED: Ativan 2 MG/1 ML VIAL ONE (14:22)
[2024-02-10] MEDS ORDERED: LEVOFLOXACIN 750MG/150ML D5W 750 MG/150 ML BAG IV ONE (14:22)
[2024-02-10] MEDS: Ativan 2 MG/1 ML VIAL IV ONE (14:23)
[2024-02-10] MEDS: LEVOFLOXACIN 750MG/150ML D5W 750 MG/150 ML BAG IV STA (14:24)
[2024-02-10 16:43] VITALS: BP 132/84; PULSE 122; RESP 20
--- NOTE | 2024-02-10 19:06 | XRAY ---
Indication: Short of breath. History lung cancer. Comparison: February 05, 2024 Portable chest demonstrates worsening large right occupying 80-90% hemithorax. Probable stable small left effusion. Heart remains enlarged. Bony thorax intact.
[2024-02-11 00:39] VITALS: O2SAT 93
== END 2024-02-10 16:43 | disposition short-term general hospital (02) ==
LOC: ED 11:31
DX: J90 Pleural effusion, not elsewhere classified (principal); I48.20 Chronic atrial fibrillation, unspecified; R06.02 Shortness of breath; M54.9 Dorsalgia, unspecified; M79.604 Pain in right leg; M79.605 Pain in left leg; I11.0 Hypertensive heart disease with heart failure; I50.9 Heart failure, unspecified; Z79.891 Long term (current) use of opiate analgesic; Z79.899 Other long term (current) drug therapy; Z72.0 Tobacco use
CPT/HCPCS: 36415; 71045; 80053; 82550; 83880; 84484; 85025; 87040; 96365; 96374; 96375; 96376; 99285; 99291; J1170; J1956; J2060; J2405